=== PATIENT | female | born 1960 | race Caucasian/White ===

== ENCOUNTER 2017-12-26 14:34 | Emergency (ER) | payer OTHER ==
--- NOTE | 2017-12-26 14:49 | PDOC ---
History of Present Illness - General Chief Complaint: Pain Stated Complaint: PAIN Time Seen by Provider: 12/26/17 14:43 - History of Present Illness Initial Comments: 12/26/17 14:47 57 yo F with h/o morbid obesity who p/w lower abdominal pain and dysuria. Patient reports 5 days of dull, spasmodic, left lower quadrant abdominal pain, worse with prolonged sitting position. Also endorses 5 days of dysuria, and 2 days of nausea without vomiting. Normal daily bowel movements. Denies recent abdominal trauma. Pain not relieved with Iburprofen. Patient denies N/V, F,C, CP, SOB, urinary complaints, diarrhea, constipation, BPR, lightheadedness, weakness, sensory changes. PMHx: as noted above Surgical: H/o hysterectomy ROS: as noted SHx: 1/2 ppd tobacco use x 20 + years. Allergies:NKDA Past History - Past Medical History Allergies/Adverse Reactions: Allergies Allergy/AdvReac Type Severity Reaction Status Date / Time No Known Allergies Allergy Verified 12/26/17 14:35 Home Medications: Ambulatory Orders Cephalexin [Keflex] 500 mg PO BID #14 capsule MDD 2 tab 12/26/17 COPD: No Diabetes: Yes HTN: Yes Thyroid Disease: Yes (hypothyroidism) - Suicide/Smoking/Psychosocial Hx Smoking Status: Yes Smoking History: Current every day smoker Have you smoked in the past 12 months: Yes Number of Cigarettes Smoked Daily: 5 Information on smoking cessation initiated: Yes 'Breaking Loose' booklet given: 12/26/17 Hx Alcohol Use: No Drug/Substance Use Hx: No Substance Use Type: None Review of Systems - Review of Systems Comments:: 12/26/17 14:47 GENERAL/CONSTITUTIONAL: No fever or chills. No weakness. HEAD, EYES, EARS, NOSE AND THROAT: No change in vision. No ear pain or discharge. No sore throat. CARDIOVASCULAR: No chest pain or shortness of breath RESPIRATORY: No cough, wheezing, or hemoptysis. GASTROINTESTINAL: + Abdominal pain, dysuria. No nausea, vomiting, diarrhea or constipation. GENITOURINARY: No dysuria, frequency, or change in urination. MUSCULOSKELETAL: No joint or muscle swelling or pain. No neck or back pain. SKIN: No rash NEUROLOGIC: No headache, vertigo, loss of consciousness, or change in strength/ sensation. ENDOCRINE: No increased thirst. No abnormal weight change HEMATOLOGIC/LYMPHATIC: No anemia, easy bleeding, or history of blood clots. ALLERGIC/IMMUNOLOGIC: No hives or skin allergy. *Physical Exam - Vital Signs Last Vital Signs Temp Pulse Resp BP Pulse Ox 98.4 F 104 H 18 146/86 100 12/26/17 14:35 12/26/17 14:35 12/26/17 14:35 12/26/17 14:35 12/26/17 14:35 - Physical Exam Comments: 12/26/17 14:47 GENERAL: Awake, alert, and fully oriented, in no acute distress HEAD: No signs of trauma, normocephalic, atraumatic EYES: PERRLA, EOMI, sclera anicteric, conjunctiva clear ENT: Hearing grossly normal, nares patent, oropharynx clear without exudates. Moist mucosa NECK: Normal ROM, supple, no lymphadenopathy, JVD, or masses LUNGS: No distress, speaks full sentences, clear to auscultation bilaterally HEART: Regular rate and rhythm, normal S1 and S2, no murmurs, rubs or gallops, peripheral pulses normal and equal bilaterally. ABDOMEN: + Suprapubic ttp. Soft, normoactive bowel sounds. No guarding, no rebound, no rigidity. No masses. Neg CVA ttp. EXTREMITIES : Normal inspection, Normal range of motion, no edema. No clubbing or cyanosis. SKIN: Warm, Dry, normal turgor, no rashes or lesions noted ED Treatment Course - LABORATORY CBC & Chemistry Diagram: 12/26/17 15:05 12/26/17 15:05 Medical Decision Making - Medical Decision Making 12/26/17 15:28 57 yo F with h/o morbid obesity who p/w lower abdominal pain and dysuria. VSS, AF. + Suprapubic ttp. Likely cystitis. Differential also includes nephrolithiais , colitis, diverticulitis, . No upper abdominal involvement. Low suspicion of appendicitis, biliary dz. pancreatitis, AAA. ED Course: CBC,CMP, UA, Urine Cx. NS, Toradol 12/26/17 15:33 UA: 3+ Leuk Est, 58 WBC, 22 RBC Keflex sent to pharmacy 12/26/17 16:39 WBC: 11.0 CMP: Unremarkable Patient stable for d/c with return precautions. Advised to f/u with PMD. *DC/Admit/Observation/Transfer Diagnosis at time of Disposition: Cystitis - Discharge Dispostion Condition at time of disposition: Stable Decision to Admit order: No - Prescriptions Prescriptions: Cephalexin [Keflex] 500 mg PO BID #14 capsule MDD 2 tab - Referrals Referrals: Jose Juan Hall [Primary Care Provider] - - Patient Instructions Printed Discharge Instructions: DI for Urinary Tract Infection (UTI) Additional Instructions: Please return to the emergency department with any new or worsening symptoms or concerns. Please follow up with your primary care physician within 72 hours. Please take Keflex as prescribed two times a day for 7 days. Ibuprofen and Tylenol as needed for pain. - Post Discharge Activity - Attestations Physician Attestion: 12/26/17 14:49 I attest to the information provided in this note.
[2017-12-26 14:57] VITALS: BP 146/86; TEMP 98.4; BMI 42.5
[2017-12-26 15:08] LABS: URINE APPEARANCE CLOUDY; URINE BILIRUBIN NEGATIVE (<2.0 mg/dL); URINE GLUCOSE (UA) NEGATIVE (NEGATIVE); URINE KETONE TRACE (NEGATIVE); URINE NITRITE NEGATIVE (NEGATIVE)
[2017-12-26 15:12] LABS: URINE COLOR YELLOW; URINE LEUK ESTERASE 3+ (NEGATIVE); URINE PROTEIN 2+ (NEGATIVE)
[2017-12-26 15:16] LABS: EPI CELLS MANY /HPF (FEW); URINE BACTERIA MANY /hpf (NONE SEEN); URINE HYALINE CAST 2 /lpf; URINE MUCUS MODERATE
[2017-12-26] MEDS ORDERED: KETOROLAC TROMETHAMINE 30 MG/1 ML VIAL IVPUSH ONE (15:29)
[2017-12-26 15:30] LABS: BASO % 0.9 % (0-2.0); EOS % 2.2 % (0-4.5); HEMATOCRIT 46.7 % (32.4-45.2); HEMOGLOBIN 15.4 GM/dL (10.7-15.3); LYMPH % 37.9 % (8-40); MCH 29.2 pg (25.7-33.7); MEAN CELL VOLUME 88.5 fl (80-96); MEAN PLT VOLUME 8.7 fl (7.5-11.1); MONO % 5.8 % (3.8-10.2); NEUT % 53.2 % (42.8-82.8); PLATELET COUNT 322 K/MM3 (134-434); RBC 5.28 M/mm3 (3.60-5.2); RDW 14.1 % (11.6-15.6)
[2017-12-26] MEDS ORDERED: SODIUM CHLORIDE 1,000 ML IV STA (15:30)
[2017-12-26] MEDS ORDERED: KETOROLAC TROMETHAMINE 30 MG/1 ML VIAL ONE (15:33)
[2017-12-26 15:43] LABS: ALBUMIN 3.7 g/dl (3.4-5.0); ALK PHOS 131 U/L (45-117); ANION GAP 10 MMOL/L (8-16); BILIRUBIN,TOTAL 0.3 mg/dL (0.2-1); BLOOD UREA NITROGEN 17 mg/dL (7-18); CALCIUM 9.8 mg/dL (8.5-10.1); CHLORIDE 109 mmol/L (98-107); CO2 24 mmol/L (21-32); CREATININE 0.8 mg/dL (0.55-1.3); GLUCOSE,RANDOM 200 mg/dL (74-106); POTASSIUM 4.2 mmol/L (3.5-5.1); SGOT/AST 15 U/L (15-37); SGPT/ALT 32 U/L (13-61); SODIUM 143 mmol/L (136-145)
--- NOTE | 2017-12-26 16:54 | PDOC ---
Attending Attestation - Resident Resident Name: Feliberto Allison - ED Attending Attestation I have performed the following: I have examined & evaluated the patient, The case was reviewed & discussed with the resident, I agree w/resident's findings & plan, Exceptions are as noted - HPI HPI: 12/28/17 08:42 Ms Diaz is a 57 yo F with h/o morbid obesity who p/w lower abdominal pain and dysuria x 5 days. (+) dysuria (+) 2 days of nausea without vomiting. No fevers or chills No hematuria noted No weakness - Physicial Exam PE: 12/28/17 08:43 GENERAL: Awake, alert, and fully oriented, in no acute distress LUNGS: No distress, speaks full sentences, clear to auscultation bilaterally HEART: Regular rate and rhythm, normal S1 and S2, no murmurs, rubs or gallops, peripheral pulses normal and equal bilaterally. ABDOMEN: + Suprapubic tenderness to palpation, no guarding or rebound, no RLQ or LLQ tenderness Neg CVA ttp. EXTREMITIES : Normal inspection, Normal range of motion, no edema. No clubbing or cyanosis. SKIN: Warm, Dry, normal turgor, no rashes or lesions noted - Medical Decision Making 12/28/17 08:46 Laboratory Tests 12/26/17 12/26/17 15:01 15:05 WBC 11.0 H Urine Ketones Trace H Urine Blood Negative Ur Leukocyte Esterase 3+ H Urine WBC (Auto) 58 Urine RBC (Auto) 22 Likely UTI Will send urine culture D/c to home return for worsening pain, fever, any other concerns or complaints
[2017-12-26 17:03] VITALS: PULSE 92
== END 2017-12-26 17:03 | disposition home or self-care (01) ==
LOC: JER 14:34
PROC: 3E0337Z Introduction of Electrolytic and Water Balance Substance into Peripheral Vein, Percutaneous Approach (ICD-10-PCS; principal; 2017-12-26)
PROC: 3E0333Z Introduction of Anti-inflammatory into Peripheral Vein, Percutaneous Approach (ICD-10-PCS; 2017-12-26)
DX: N30.00 Acute cystitis without hematuria (principal); I10 Essential (primary) hypertension; E03.9 Hypothyroidism, unspecified; E11.9 Type 2 diabetes mellitus without complications; F17.210 Nicotine dependence, cigarettes, uncomplicated
CPT/HCPCS: 36415; 80053; 81003; 81015; 85025; 87086; 96361; 96374; 99283-25; J7030

== ENCOUNTER 2018-07-16 06:13 | Emergency (ER) | payer OTHER ==
[2018-07-16] MEDS ORDERED: SODIUM CHLORIDE 1,000 ML IV STA (06:23)
[2018-07-16 06:27] VITALS: BP 158/89; PULSE 104; TEMP 98.9; BMI 43.5
--- NOTE | 2018-07-16 07:14 | PDOC ---
History of Present Illness - General Chief Complaint: Pain Stated Complaint: ABD PAIN Time Seen by Provider: 07/16/18 07:14 History Source: Patient - History of Present Illness Initial Comments: 07/16/18 07:27 The patient is a 57 year old female with a PMH of IDDM, Hypothyroidism (2/2 thyroid resection), HTN, HLD who presents to our ED this morning c/o acute onset of abdominal pain. Patient states patient started at 2 a.m. right after she got up to urinate. Pain is sharp, constant, localized to her B/L LQ and associated with 4 episodes of NBNB emesis. States she currently feels the urge to urinate however every time she goes to the bathroom she only produces a little bit of urine. No h/o similar pain. Last PO intake was yesterday around 6 p.m. and last BM was yesterday morning and was normal. NKDA Surgical: Hysterectomy, Thyroid Resection, Cholecystectomy Social: 1/2 PPD for 20+ years, denies recreational drugs As per EMR, patient evaluated in our ED in 07/17 for dysuria. Urine culture negative for growth. Past History - Past Medical History Allergies/Adverse Reactions: Allergies Allergy/AdvReac Type Severity Reaction Status Date / Time No Known Allergies Allergy Verified 12/26/17 14:35 Home Medications: Ambulatory Orders Aspirin 81 mg PO DAILY 07/16/18 Atorvastatin Ca [Lipitor] 20 mg PO HS 07/16/18 Docusate Sodium [Colace] 100 mg PO DAILY 07/16/18 Ibuprofen [Motrin -] 600 mg PO QID #28 tablet 07/16/18 Insulin Glargine,Hum.rec.anlog [Basaglar Kwikpen U-100] 60 unit SQ HS 07/16/18 Insulin Lispro [Admelog] 15 unit SQ TID 07/16/18 Levothyroxine Sodium [Synthroid] 150 mcg PO DAILY 07/16/18 Metformin HCl [Glucophage] 1,000 mg PO BID 07/16/18 Montelukast Na [Singulair -] 10 mg PO HS 07/16/18 Oxycodone HCl/Acetaminophen [Percocet 5-325 mg Tablet -] 1 combo PO Q6H PRN #14 tablet MDD 4 07/16/18 Ramipril 10 mg PO DAILY 07/16/18 Semaglutide [Ozempic] 1 mg SQ WEEKLY 07/16/18 Sennosides [Senna -] 1 tab PO DAILY 07/16/18 Tamsulosin HCl [Flomax -] 0.4 mg PO DAILY #5 cap.er.24h 07/16/18 Umeclidinium Brm/Vilanterol Tr [Anoro Ellipta 62.5-25 Mcg INH] 1 each IH DAILY 07/16/18 COPD: No Diabetes: Yes HTN: Yes Thyroid Disease: Yes (hypothyroidism) - Immunization History Td Vaccination: Yes TDAP Vaccination: Yes Immunization Up to Date: Yes - Suicide/Smoking/Psychosocial Hx Smoking Status: Yes Smoking History: Never smoked Have you smoked in the past 12 months: Yes Number of Cigarettes Smoked Daily: 10 Information on smoking cessation initiated: No 'Breaking Loose' booklet given: 12/26/17 Hx Alcohol Use: No Drug/Substance Use Hx: No Substance Use Type: None Review of Systems - Review of Systems Constitutional: No: Chills, Fever HEENTM: No: Recent change in vision Respiratory: No: Cough, Shortness of Breath Cardiac (ROS): No: Chest Pain, Lightheadedness, Palpitations, Syncope ABD/GI: Yes: Diarrhea, Nausea, Vomiting. No: Constipated : Yes: Urgency. No: Burning, Dysuria *Physical Exam - Vital Signs Last Vital Signs Temp Pulse Resp BP Pulse Ox 98.9 F 104 H 20 158/89 100 07/16/18 06:23 07/16/18 06:23 07/16/18 06:23 07/16/18 06:23 07/16/18 06:23 - Physical Exam General Appearance: Yes: Nourished, Obese HEENT: positive: Normal Voice, Hearing Grossly Normal Neck: positive: Trachea midline, Supple Respiratory/Chest: positive: Lungs Clear, Normal Breath Sounds Cardiovascular: positive: S1, S2 Gastrointestinal/Abdominal: positive: Soft Heart Score/ECG Review - ECG Impressions Comment:: 07/16/18 17:19 NSR HR 92, LAD, incomplete LBB, no ISABEL/STD/TWI ED Treatment Course - LABORATORY CBC & Chemistry Diagram: 07/16/18 07:20 07/16/18 06:22 Medical Decision Making - Medical Decision Making 07/16/18 07:37 57 year old female with acute onset of abdominal pain, c/o increased urgency. Tachycardic (HR 104) other VS unremarkable. Initial abdominal TTP, negative tenderness w/stethescope test, mild R sided CVAT. Frontal diagnosis: pyelonephritis, cystitis, less likely acute abdomen including SBO, cholecystitis , appendicitis. Also consider gastritis/gastroenteritis. Also consider abdominal pain as anginal equivalent, though less likely. PLAN: 1. Troponin, EKG 2. CBC, CMP 3. UA/Urine Culture Toradol for pain control. Reassess. 07/16/18 08:20 UA shows 3+ blood - will obtain non-contrast CT to evaluate for possible nephrolithiasis Leukocytosis 14.7 CMP unremarkable Troponin (-) 07/16/18 10:44 CT IMPRESSION: 1. 6 mm left ureteral calculus with mild hydronephrosis 2. No additional evidence of acute pathology within the abdomen or pelvis Patient reassessed @ bedside. Symptomatically improved. Will discharge home with urology follow-up, NSAIDs/Percocet for pain control, Flomax and return precautions. *DC/Admit/Observation/Transfer Diagnosis at time of Disposition: Nephrolithiasis - Discharge Dispostion Disposition: HOME Condition at time of disposition: Good Decision to Admit order: No - Prescriptions Prescriptions: Ibuprofen [Motrin -] 600 mg PO QID #28 tablet Oxycodone HCl/Acetaminophen [Percocet 5-325 mg Tablet -] 1 combo PO Q6H PRN #14 tablet MDD 4 PRN Reason: Pain Tamsulosin HCl [Flomax -] 0.4 mg PO DAILY #5 cap.er.24h - Referrals Referrals: Jose Juan Hall [Primary Care Provider] - Dom Brizuela MD [Staff Physician] - - Patient Instructions Additional Instructions: Please make an appointment for follow-up evaluation with Dr. Brizuela in the next 48 hours. Alternatively, you can call your insurance company for a list of urologists. We have sent a prescription for pain medication and a prescription for a medication to help you urinate to your pharmacy. Please take these medications as directed. Return to the Emergency Department for any new/worsening/concerning symptoms. - Post Discharge Activity
--- NOTE | 2018-07-16 07:22 | PDOC ---
Attending Attestation - Resident Resident Name: VaneCheri - ED Attending Attestation I have performed the following: I have examined & evaluated the patient, The case was reviewed & discussed with the resident, I agree w/resident's findings & plan, Exceptions are as noted - HPI HPI: 07/16/18 07:31 57y F hx of htn, hl, IDDM, hypothyroid secondary to thyroid resection, presents with sudden onset of LLQ pain starting around 2am. Pt was in [facility] until then - pain is in the L flank, severe, constant, radiates to the groin. Associated with nbnb vomiting without f/c, diarrhea, dysuria, hematuria. Pt endorses some urgency. Pt denies any assoc cp, sob, back pain, numbness/tingling/weakness. No prior history of similar pain in the past. Last BM was yesterday morning. Surgical hx: hysterectomy, cholecystectomy SHx: 1/2 ppd tobacco use x 20 + years. Allergies:NKDA - Physicial Exam PE: 07/16/18 07:32 GENERAL: The patient is awake, alert, and fully oriented, appears to be uncomfortable HEAD: Normocephalic, atraumatic. EYES: extraocular movements intact, sclera anicteric, conjunctiva clear. ENT: Normal voice, Moist mucous membranes. NECK: Normal range of motion, supple LUNGS: Breath sounds equal, clear to auscultation bilaterally. No wheezes, no rhonchi, no rales. HEART: Regular rate and rhythm, normal S1 and S2 without murmur, rub or gallop. ABDOMEN: Soft, nontender, No guarding, no rebound. . No CVA tenderness EXTREMITIES: Normal range of motion, no edema. No clubbing or cyanosis. No cords, erythema, or tenderness. NEUROLOGICAL: No facial assymetry, Normal speech, PSYCH: Normal mood, normal affect. SKIN: Warm, Dry, normal turgor, - Medical Decision Making 07/16/18 07:35 ddx- kidney stones, uti, diveticulitis, obstruction will obtain basic labs, ua, anticipate imaging depending on UA results toradol for pain fluids for hydration zofran for nausea 07/16/18 08:41 The patient's blood work was reviewed no significant leukocytosis, urine has some hematuria. We'll obtain CT of abdomen to rule out kidney stones or other pathologies. She is currently much more comfortable 07/16/18 11:01 US cw 6mm stoneon left side will reassess the patint. if pain controlled will dc with uro fu 07/16/18 11:30 pt jaiden johnston will dc with pmd and uro fu Heart Score/ECG Review - ECG Impressions Comment:: 07/16/18 08:41 Twelve-lead EKG was performed and reviewed by me. There is normal sinus rhythm with a normal rate. Rate of 92 Left axis deviation Incomplete left bundle-branch block
[2018-07-16] MEDS ORDERED: KETOROLAC TROMETHAMINE 30 MG/1 ML VIAL IVPUSH ONE (07:30)
[2018-07-16] MEDS ORDERED: KETOROLAC TROMETHAMINE 30 MG/1 ML VIAL ONE (07:34)
[2018-07-16] MEDS ORDERED: ONDANSETRON 4 MG/2 ML VIAL IVPB ONE (07:34)
[2018-07-16 07:37] LABS: URINE APPEARANCE CLOUDY; URINE BACTERIA 29.4 /hpf (NEGATIVE); URINE BILIRUBIN NEGATIVE (NEGATIVE); URINE CASTS 3 /lpf (0-8); URINE COLOR YELLOW; URINE GLUCOSE (UA) 3+ (NEGATIVE); URINE KETONE 1+ (NEGATIVE); URINE LEUK ESTERASE 1+ (NEGATIVE); URINE NITRITE NEGATIVE (NEGATIVE); URINE PROTEIN 1+ (NEGATIVE); URINE RBC 290 /hpf (0-4); URINE UROBILINOGEN 0.2 mg/dL (0.2-1.0); URINE WBC 12 /hpf (0-5)
[2018-07-16] MEDS ORDERED: ONDANSETRON 4 MG/2 ML VIAL ONE (07:38)
[2018-07-16 07:41] LABS: VENOUS PC02 38.6 mmHg (41-51); VENOUS PH 7.4 (7.31-7.41); VENOUS PO2 39.8 mmHg (30-40)
[2018-07-16 07:57] LABS: ALBUMIN 4.3 g/dl (3.4-5.0); ALK PHOS 131 U/L (45-117); ANION GAP 10 MMOL/L (8-16); BILIRUBIN,TOTAL 0.4 mg/dL (0.2-1); BLOOD UREA NITROGEN 22 mg/dL (7-18); CALCIUM 9.9 mg/dL (8.5-10.1); CHLORIDE 104 mmol/L (98-107); CO2 24 mmol/L (21-32); GLUCOSE,RANDOM 275 mg/dL (74-106); LIPASE 110 U/L (73-393); POTASSIUM 4.2 mmol/L (3.5-5.1); SGOT/AST 19 U/L (15-37); SGPT/ALT 42 U/L (13-61); SODIUM 138 mmol/L (136-145); TOT PROT 7.9 g/dl (6.4-8.2)
[2018-07-16 08:08] LABS: ACETONE SERUM NEGATIVE (NEGATIVE)
[2018-07-16 08:30] LABS: BASO % 0.6 % (0-2.0); EOS % 0.2 % (0-4.5); HEMATOCRIT 46.1 % (32.4-45.2); HEMOGLOBIN 15.5 GM/dL (10.7-15.3); LYMPH % 14.8 % (8-40); MCH 29.6 pg (25.7-33.7); MCHC 33.5 g/dl (32.0-36.0); MEAN CELL VOLUME 88.2 fl (80-96); MEAN PLT VOLUME 8.9 fl (7.5-11.1); MONO % 6.1 % (3.8-10.2); NEUT % 78.3 % (42.8-82.8); PLATELET COUNT 319 K/MM3 (134-434); RBC 5.23 M/mm3 (3.60-5.2); RDW 13.6 % (11.6-15.6); WHITE BLOOD COUNT 14.7 K/mm3 (4.0-10.0)
--- NOTE | 2018-07-16 10:31 | EKG ---
Test Reason : Blood Pressure : / mmHG Vent. Rate : 092 BPM Atrial Rate : 092 BPM P-R Int : 154 ms QRS Dur : 110 ms QT Int : 376 ms P-R-T Axes : 066 -35 090 degrees QTc Int : 464 ms NORMAL SINUS RHYTHM LEFT AXIS DEVIATION INCOMPLETE LEFT BUNDLE BRANCH BLOCK T WAVE ABNORMALITY, CONSIDER LATERAL ISCHEMIA PROLONGED QT ABNORMAL ECG Confirmed by TASHA PORTILLO MD ([id number]) on 07/16/2018 10:30:48 AM Referred By: Confirmed By:TASHA PORTILLO MD
== END 2018-07-16 12:00 | disposition home or self-care (01) ==
LOC: JER 06:13
PROC: 3E0337Z Introduction of Electrolytic and Water Balance Substance into Peripheral Vein, Percutaneous Approach (ICD-10-PCS; principal; 2018-07-16)
PROC: 3E0333Z Introduction of Anti-inflammatory into Peripheral Vein, Percutaneous Approach (ICD-10-PCS; 2018-07-16)
PROC: 3E033GC Introduction of Other Therapeutic Substance into Peripheral Vein, Percutaneous Approach (ICD-10-PCS; 2018-07-16)
DX: N13.2 Hydronephrosis with renal and ureteral calculous obstruction (principal); I10 Essential (primary) hypertension; E78.5 Hyperlipidemia, unspecified; E11.9 Type 2 diabetes mellitus without complications; Z79.4 Long term (current) use of insulin; E89.0 Postprocedural hypothyroidism
CPT/HCPCS: 36415; 74176-TC; 80053; 81003; 82009; 82550; 82553; 82803; 82962; 83690; 84484; 85025; 93005; 93010; 96361; 96374; 96375; 99284-25; J7030

== ENCOUNTER 2018-07-18 02:06 | Inpatient (IN) | payer OTHER ==
[2018-07-18] MEDS ORDERED: morphine CARPU-JECT 2 MG/1 ML DISP.SYRIN IVPUSH ONE (02:09)
[2018-07-18] MEDS ORDERED: KETOROLAC TROMETHAMINE 30 MG/1 ML VIAL IVPUSH ONE (02:09)
[2018-07-18] MEDS ORDERED: TAMSULOSIN HCL 0.4 MG CAP PO ONE (02:10)
--- NOTE | 2018-07-18 02:10 | PDOC ---
History of Present Illness - General Stated Complaint: LEFT FLANK PAIN Time Seen by Provider: 07/18/18 02:09 - History of Present Illness Initial Comments: 07/18/18 02:41 The patient is a 57 year old female with a history of HTN, DM, Hypothyroidism who presents for evaluation of flank pain. The patient reports a 2-3 day history of left sided severe sharp flank pain with radiation into her left groin. She presented to the ED 1 day ago for similar symptoms and was found to have a 6mm left kidney stone. She was discharged with pain medication, however reports continued severe symptoms despite medication with associated nausea and non-bilious, non-bloody vomiting prompting her presentation to the ED for further evaluation. She otherwise denies fevers, chills, SOB, chest pain, abdominal pain, or changes with bowel movements. Past History - Past Medical History Allergies/Adverse Reactions: Allergies Allergy/AdvReac Type Severity Reaction Status Date / Time No Known Allergies Allergy Verified 07/18/18 02:33 Home Medications: Ambulatory Orders Aspirin 81 mg PO DAILY 07/16/18 Atorvastatin Ca [Lipitor] 20 mg PO HS 07/16/18 Docusate Sodium [Colace] 100 mg PO DAILY 07/16/18 Ibuprofen [Motrin -] 600 mg PO QID #28 tablet 07/16/18 Insulin Glargine,Hum.rec.anlog [Basaglar Kwikpen U-100] 60 unit SQ HS 07/16/18 Insulin Lispro [Admelog] 15 unit SQ TID 07/16/18 Levothyroxine Sodium [Synthroid] 150 mcg PO DAILY 07/16/18 Metformin HCl [Glucophage] 1,000 mg PO BID 07/16/18 Montelukast Na [Singulair -] 10 mg PO HS 07/16/18 Oxycodone HCl/Acetaminophen [Percocet 5-325 mg Tablet -] 1 combo PO Q6H PRN #14 tablet MDD 4 07/16/18 Ramipril 10 mg PO DAILY 07/16/18 Semaglutide [Ozempic] 1 mg SQ WEEKLY 07/16/18 Sennosides [Senna -] 1 tab PO DAILY 07/16/18 Tamsulosin HCl [Flomax -] 0.4 mg PO DAILY #5 cap.er.24h 07/16/18 Umeclidinium Brm/Vilanterol Tr [Anoro Ellipta 62.5-25 Mcg INH] 1 each IH DAILY 07/16/18 COPD: No Diabetes: Yes HTN: Yes Thyroid Disease: Yes (hypothyroidism) - Immunization History Td Vaccination: Yes TDAP Vaccination: Yes Immunization Up to Date: Yes - Suicide/Smoking/Psychosocial Hx Smoking Status: Yes Smoking History: Never smoked Have you smoked in the past 12 months: Yes Number of Cigarettes Smoked Daily: 10 'Breaking Loose' booklet given: 12/26/17 Hx Alcohol Use: No Drug/Substance Use Hx: No Substance Use Type: None Review of Systems - Review of Systems Comments:: 07/18/18 02:45 Constitutional: No fevers, chills, fatigue, malaise HEENT: No Rhinorrhea, nasal congestion, visual changes Cardiovascular: No chest pain, syncope, palpitations, lightheadedness Respiratory: No Cough, SOB, Hemoptysis, Gastrointestinal: Nausea, vomiting. No Abdominal pain, Constipation, Diarrhea, Melena Genitourinary: Left Flank pain, Increased Frequency of Urination. No Dysuria, Urgency, Hesitancy, Musculoskeletal: No Myalgia, arthralgia Skin: No rashes, itching, bruising, pallor Neurologic: No Headache, Dizziness, Numbness, Weakness, or Tingling Psychiatric: No Hallucinations. No SI or HI *Physical Exam - Physical Exam Comments: 07/18/18 02:45 General Appearance: Nourished. No Apparent Distress HEENT: No Pharyngeal Erythema, Tonsillar Exudate, Tonsillar Erythema Neck: No Cervical Lymphadenopathy Respiratory/Chest: Lungs Clear, Normal Breath Sounds. No Crackles, Rales, Rhonchi, Wheezing Cardiovascular: Regular Rhythm, Regular Rate. No Murmur, Gallops, Rubs Gastrointestinal/Abdominal: Normal Bowel Sounds, Soft. No Guarding, Rebound, Tenderness Musculoskeletal: Left sided CVA Tenderness, No Right sided CVA Tenderness Extremity: Normal Capillary Refill Integumentary: Normal Color, Dry, Warm Neurologic: Fully Oriented, Alert, Normal Mood/Affect, Normal Response, ED Treatment Course - LABORATORY CBC & Chemistry Diagram: 07/18/18 02:38 07/18/18 02:09 Medical Decision Making - Medical Decision Making 07/18/18 02:46 The patient is a 57 year old female with a history of HTN, DM, Hypothyroidism who presents for evaluation of flank pain. Given the patient's history and physical exam, it is likely her symptoms are due to her known kidney stone. However, we will obtain a cbc, cmp, ua, CT abdomen/pelvis to evaluate further. We will treat with morphine and toradol and flomax and continue to monitor and reassess while here in the ED. She will likely require admission given her failure of outpatient management. 07/18/18 03:54 CBC is unremarkable. CMP demonstrates a creatinine of 1.7 which is increased from 2 days ago. CMP also demonstrates an elevated glucose to 300s. CT abdomen /pelvis continues to demonstrate 6mm left sided kidney stone with mild hydronephrosis as preliminarily read by our correction officer head radiologist. We discussed the case with the admitting team who accepted the patient for admission. *DC/Admit/Observation/Transfer Diagnosis at time of Disposition: Nephrolithiasis - Discharge Dispostion Condition at time of disposition: Stable Decision to Admit order: Yes - Referrals Referrals: Jose Juan Hall [Primary Care Provider] - - Patient Instructions - Post Discharge Activity
[2018-07-18] MEDS ORDERED: KETOROLAC TROMETHAMINE 30 MG/1 ML VIAL ONE (02:43)
[2018-07-18] MEDS ORDERED: TAMSULOSIN HCL 0.4 MG CAP ONE (02:43)
[2018-07-18] MEDS ORDERED: morphine SULFATE 4 MG/ML VIAL ONE (02:43)
[2018-07-18 02:51] LABS: BASO % 0.8 % (0-2.0); EOS % 0.2 % (0-4.5); HEMATOCRIT 43.8 % (32.4-45.2); HEMOGLOBIN 14.7 GM/dL (10.7-15.3); LYMPH % 17.2 % (8-40); MCH 29.7 pg (25.7-33.7); MCHC 33.6 g/dl (32.0-36.0); MEAN CELL VOLUME 88.5 fl (80-96); MEAN PLT VOLUME 8.3 fl (7.5-11.1); MONO % 4.5 % (3.8-10.2); NEUT % 77.3 % (42.8-82.8); PLATELET COUNT 294 K/MM3 (134-434); RBC 4.95 M/mm3 (3.60-5.2); RDW 13.4 % (11.6-15.6); WHITE BLOOD COUNT 10.7 K/mm3 (4.0-10.0)
--- NOTE | 2018-07-18 02:56 | PDOC ---
Attending Attestation - Resident Resident Name: Bhupendra Gautam - ED Attending Attestation I have performed the following: I have examined & evaluated the patient, The case was reviewed & discussed with the resident, I agree w/resident's findings & plan - HPI HPI: 07/18/18 02:55 Pt comes with left flank pain. SHe had a proximal 6mm stone in her left ureter yesterday with mild hydro. Sent home. Now retuens with intractable pain. - Physicial Exam PE: 07/18/18 02:56 Agree with resident exam - Medical Decision Making 07/18/18 02:55 Patient Name: KOFI RUBIO THIS IS A PRELIMINARY REPORT FROM [facility] DATE OF SERVICE: 2018-07-18 02:07:11 IMAGES: [id number] EXAM: CT ABDOMEN AND PELVIS WITHOUT CONTRAST 4.1 x 3.6 x 2.6 cm right adnexal soft tissue densiity, possibly ovarian, advise ultrasound correlation. Hysterectomy. 6 mm stone distal left ureter causing minimal hydronephrosis. No bowel obstruction, colitis, free fluid or free air. Normal appendix. Unremarkable pancreas. Dilated gallbladder, which can be seen in fasting state. Hepatomegaly. Nodular thickening left adrenal gland. Small umbilical hernia containing fat. 07/18/18 02:56 Pt will be admitted to obs. Pain management as well as BUN/Cr monitoring
[2018-07-18 02:57] LABS: URINE APPEARANCE CLEAR; URINE BILIRUBIN NEGATIVE (NEGATIVE); URINE COLOR YELLOW; URINE GLUCOSE (UA) 3+ (NEGATIVE); URINE KETONE 1+ (NEGATIVE); URINE LEUK ESTERASE NEGATIVE (NEGATIVE); URINE NITRITE NEGATIVE (NEGATIVE); URINE PROTEIN NEGATIVE (NEGATIVE); URINE UROBILINOGEN 0.2 mg/dL (0.2-1.0)
[2018-07-18 03:17] LABS: ALBUMIN 4.1 g/dl (3.4-5.0); ALK PHOS 125 U/L (45-117); ANION GAP 8 MMOL/L (8-16); BILIRUBIN,TOTAL 0.5 mg/dL (0.2-1); BLOOD UREA NITROGEN 23 mg/dL (7-18); CALCIUM 9.7 mg/dL (8.5-10.1); CHLORIDE 104 mmol/L (98-107); CO2 26 mmol/L (21-32); CREATININE 1.7 mg/dL (0.55-1.3); POTASSIUM 4.2 mmol/L (3.5-5.1); SGOT/AST 19 U/L (15-37); SGPT/ALT 40 U/L (13-61); SODIUM 138 mmol/L (136-145); TOT PROT 7.7 g/dl (6.4-8.2)
[2018-07-18 03:20] LABS: GLUCOSE,RANDOM 318 mg/dL (74-106)
--- NOTE | 2018-07-18 03:54 | HP ---
CHIEF COMPLAINT: left flank pain PCP: Isabel HISTORY OF PRESENT ILLNESS: 57 year old female with 2-3 day history of left sided severe sharp flank pain with radiation into her left groin. She presented to the ED 1 day ago for similar symptoms and was found to have a 6mm left kidney stone. She was discharged with pain medication, however reports continued severe symptoms despite medication with associated nausea and non-bilious, non-bloody vomiting. ER course was notable for: (1) CT of abdomen/pelvis (2) KEtorolac (3) Recent Travel: no PAST MEDICAL HISTORY:HTN, DM, Hypothyroidism, COPD? PAST SURGICAL HISTORY: hysterectomy, goiter removal Social History: Smokin/2 ppd tobacco use x 20 + years. Alcohol: no Drugs: no Family History: Allergies No Known Allergies Allergy (Verified 07/18/18 02:33) HOME MEDICATIONS: Home Medications Medication Instructions Recorded Aspirin 81 mg PO DAILY 07/16/18 Atorvastatin Ca [Lipitor] 20 mg PO HS 07/16/18 Docusate Sodium [Colace] 100 mg PO DAILY 07/16/18 Ibuprofen [Motrin -] 600 mg PO QID #28 tablet 07/16/18 Insulin Glargine,Hum.rec.anlog 60 unit SQ HS 07/16/18 [Basaglar Kwikpen U-100] Insulin Lispro [Admelog] 15 unit SQ TID 07/16/18 Levothyroxine Sodium [Synthroid] 150 mcg PO DAILY 07/16/18 Metformin HCl [Glucophage] 1,000 mg PO BID 07/16/18 Montelukast Na [Singulair -] 10 mg PO HS 07/16/18 Oxycodone HCl/Acetaminophen 1 combo PO Q6H PRN #14 tablet MDD 4 07/16/18 [Percocet 5-325 mg Tablet -] Ramipril 10 mg PO DAILY 07/16/18 Semaglutide [Ozempic] 1 mg SQ WEEKLY 07/16/18 Sennosides [Senna -] 1 tab PO DAILY 07/16/18 Tamsulosin HCl [Flomax -] 0.4 mg PO DAILY #5 cap.er.24h 07/16/18 Umeclidinium Brm/Vilanterol Tr 1 each IH DAILY 07/16/18 [Anoro Ellipta 62.5-25 Mcg INH] REVIEW OF SYSTEMS CONSTITUTIONAL: Absent: fever, chills, diaphoresis, generalized weakness, malaise, loss of appetite, weight change HEENT: Absent: rhinorrhea, nasal congestion, throat pain, throat swelling, difficulty swallowing, mouth swelling, ear pain, eye pain, visual changes CARDIOVASCULAR: Absent: chest pain, syncope, palpitations, irregular heart rate, lightheadedness , peripheral edema RESPIRATORY: Absent: cough, shortness of breath, dyspnea with exertion, orthopnea, wheezing, stridor, hemoptysis GASTROINTESTINAL: Absent: abdominal pain, abdominal distension,diarrhea, constipation, melena, hematochezia Present- nausea, vomiting, GENITOURINARY: Absent: dysuria, frequency, urgency, hesitancy, hematuria, genital pain present- flank pain, MUSCULOSKELETAL: Absent: myalgia, arthralgia, joint swelling, back pain, neck pain SKIN: Absent: rash, itching, pallor HEMATOLOGIC/IMMUNOLOGIC: Absent: easy bleeding, easy bruising, lymphadenopathy, frequent infections ENDOCRINE: Absent: unexplained weight gain, unexplained weight loss, heat intolerance, cold intolerance NEUROLOGIC: Absent: headache, focal weakness or paresthesias, dizziness, unsteady gait, seizure, mental status changes, bladder or bowel incontinence PSYCHIATRIC: Absent: anxiety, depression, suicidal or homicidal ideation, hallucinations. PHYSICAL EXAMINATION Vital Signs - 24 hr 07/18/18 02:31 Temperature 98.4 F Pulse Rate 96 H Respiratory 20 Rate Blood Pressure 156/86 O2 Sat by Pulse 98 Oximetry (%) GENERAL: Awake, alert, and fully oriented, in no acute distress, obese HEAD: Normal with no signs of trauma. EYES: Pupils equal, round and reactive to light, extraocular movements intact, sclera anicteric, conjunctiva clear. No lid lag. EARS, NOSE, THROAT: Ears normal, nares patent, oropharynx clear without exudates. Moist mucous membranes. NECK: Normal range of motion, supple without lymphadenopathy, JVD, or masses. LUNGS: Breath sounds equal, clear to auscultation bilaterally. No wheezes, and no crackles. No accessory muscle use. HEART: Regular rate and rhythm, normal S1 and S2 without murmur, rub or gallop. ABDOMEN: Soft, nontender, not distended, normoactive bowel sounds, no guarding, no rebound, no masses. MUSCULOSKELETAL: Normal range of motion at all joints. No bony deformities or tenderness. +CVA in left flank UPPER EXTREMITIES: 2+ pulses, warm, well-perfused. No cyanosis. No clubbing. No peripheral edema. LOWER EXTREMITIES: 2+ pulses, warm, well-perfused. No calf tenderness. No peripheral edema. NEUROLOGICAL: Cranial nerves II-XII intact. Normal speech. Normal gait. PSYCHIATRIC: Cooperative. Good eye contact. Appropriate mood and affect. SKIN: Warm, dry, normal turgor, no rashes or lesions noted, normal capillary refill. Laboratory Results - last 24 hr 07/18/18 07/18/18 07/18/18 02:09 02:38 02:50 WBC 10.7 H RBC 4.95 Hgb 14.7 Hct 43.8 MCV 88.5 MCH 29.7 MCHC 33.6 RDW 13.4 Plt Count 294 MPV 8.3 Absolute Neuts (auto) 8.2 H Neutrophils % 77.3 Lymphocytes % 17.2 Monocytes % 4.5 Eosinophils % 0.2 Basophils % 0.8 Nucleated RBC % 0 Sodium 138 Potassium 4.2 Chloride 104 Carbon Dioxide 26 Anion Gap 8 BUN 23 H Creatinine 1.7 H Creat Clearance w eGFR 31.09 Random Glucose 318 H* Calcium 9.7 Total Bilirubin 0.5 AST 19 ALT 40 Alkaline Phosphatase 125 H Total Protein 7.7 Albumin 4.1 Urine Color Yellow Urine Appearance Clear Urine pH 7.0 D Ur Specific [place] 1.025 Urine Protein Negative Urine Glucose (UA) 3+ H Urine Ketones 1+ H Urine Blood Negative Urine Nitrite Negative Urine Bilirubin Negative Urine Urobilinogen 0.[address] CT of abdomen/pelvis 4.1 x 3.6 x 2.6 cm right adnexal soft tissue densiity, possibly ovarian, advise ultrasound correlation. Hysterectomy. 6 mm stone distal left ureter causing minimal hydronephrosis. No bowel obstruction, colitis, free fluid or free air. Normal appendix. Unremarkable pancreas. Dilated gallbladder, which can be seen in fasting state. Hepatomegaly. Nodular thickening left adrenal gland. Small umbilical hernia containing fat. ASSESSMENT/PLAN: #distal left ureter 6 mm stone with resultant hydroneohrosis - failed outpatient pain med treatment. -observation -NPO -morphine IV prn if pain -zofran IV prn if nausea/vomiting -IV fluid hydration -tamsulosin -urology evaluation for stone removal #TOM- likely post obstructive from renal stone -IV fluid hydration -avoid nephrotoxins #right adnexal soft tissue density- cyst? Malignancy ? -transvaginal U/S for better evaluation -OBGYN consult #HTN -c/w ramipril home dose #HYperglycemia - normal AG -IV fluid hydration -novolog siding scale #COPD -home dose Ellipta, montelukast DVT ppx -heparin sc Visit type - Emergency Visit Emergency Visit: Yes ED Registration Date: 07/18/18 Care time: The patient presented to the Emergency Department on the above date and was hospitalized for further evaluation of their emergent condition. - New Patient This patient is new to me today: Yes Date on this admission: 07/18/18 - Critical Care Critical Care patient: No
[2018-07-18] MEDS: SODIUM CHLORIDE 1,000 ML IV SCH ×3 (03:59→21:53)
[2018-07-18] MEDS ORDERED: ONDANSETRON 4 MG/2 ML VIAL IVPB PRN (04:00)
[2018-07-18 05:01] VITALS: BMI 43.7
[2018-07-18] MEDS: INSULIN SLIDING SCALE (NOVOLOG) 1 VIAL SQ SCH ×4 (06:55→21:52)
[2018-07-18] MEDS: LEVOTHYROXINE NA 150 MCG TABLET PO SCH (06:56)
[2018-07-18 07:18] LABS: BASO % 0.6 % (0-2.0); EOS % 0.4 % (0-4.5); HEMOGLOBIN 13.4 GM/dL (10.7-15.3); LYMPH % 28.5 % (8-40); MCH 29.5 pg (25.7-33.7); MCHC 33.6 g/dl (32.0-36.0); MEAN PLT VOLUME 8.4 fl (7.5-11.1); MONO % 6.9 % (3.8-10.2); NEUT % 63.6 % (42.8-82.8); PLATELET COUNT 270 K/MM3 (134-434); RBC 4.55 M/mm3 (3.60-5.2); RDW 13.4 % (11.6-15.6); WHITE BLOOD COUNT 8.5 K/mm3 (4.0-10.0)
[2018-07-18 07:48] LABS: ANION GAP 6 MMOL/L (8-16); BLOOD UREA NITROGEN 20 mg/dL (7-18); CALCIUM 8.9 mg/dL (8.5-10.1); CHLORIDE 106 mmol/L (98-107); CO2 27 mmol/L (21-32); CREATININE 1.3 mg/dL (0.55-1.3); GLUCOSE,RANDOM 241 mg/dL (74-106); POTASSIUM 4.2 mmol/L (3.5-5.1); SODIUM 139 mmol/L (136-145)
[2018-07-18] MEDS ORDERED: PT OWN MED DRAWER 7, Y5N ONE (09:02)
[2018-07-18] MEDS: morphine SULFATE 4 MG/ML VIAL IVPUSH PRN ×2 (09:39→15:54)
--- NOTE | 2018-07-18 10:40 | PN ---
Progress Note, Physician Chief Complaint: AWAKE ALERT CHART REVIEWED IN MODERATE DISTRESS - Current Medication List Current Medications: Active Medications Aspirin (Asa -) 81 mg PO DAILY [facility] Atorvastatin Calcium (Lipitor -) 20 mg PO HS [facility] Docusate Sodium (Colace -) 100 mg PO DAILY [facility] Heparin Sodium (Porcine) (Heparin -) 5,000 unit SQ BID [facility] Sodium Chloride (Normal Saline -) 1,000 mls @ 75 mls/hr IV ASDIR [facility] Last Admin: 07/18/18 05:16 Dose: 75 mls/hr Insulin Aspart (Novolog Vial Sliding Scale -) 1 vial SQ ACHS [facility]; Protocol Last Admin: 07/18/18 06:55 Dose: 6 units Levothyroxine Sodium (Synthroid -) 150 mcg PO DAILY@0700 [facility] Last Admin: 07/18/18 06:56 Dose: 150 mcg Montelukast Sodium (Singulair -) 10 mg PO HS [facility] Morphine Sulfate (Morphine Sulfate) 2 mg IVPUSH Q4H PRN PRN Reason: PAIN LEVEL 6-10 Last Admin: 07/18/18 09:39 Dose: 2 mg Ondansetron HCl (Zofran Injection) 4 mg IVPB Q6H PRN PRN Reason: NAUSEA AND/OR VOMITING Last Admin: 07/18/18 09:33 Dose: 4 mg Ramipril (Altace -) 10 mg PO DAILY [facility] Tamsulosin HCl (Flomax -) 0.4 mg PO DAILY@0830 [facility] Umeclidinium/Vilanterol (Anoro Ellipta 62.5-25 Mcg Inh) 1 puff IH DAILY [facility] - Objective Vital Signs: Vital Signs Temperature 98.2 F 07/18/18 07:55 Pulse Rate 104 H 07/18/18 07:55 Respiratory Rate 16 07/18/18 07:55 Blood Pressure 135/80 07/18/18 07:55 O2 Sat by Pulse Oximetry (%) 97 07/18/18 08:32 Constitutional: Yes: Mild Distress Eyes: Yes: WNL HENT: Yes: WNL Neck: Yes: WNL Cardiovascular: Yes: WNL Respiratory: Yes: WNL Gastrointestinal: Yes: Tenderness Genitourinary: Yes: CVA Tenderness - Left, CVA Tenderness - Right, Other Musculoskeletal: Yes: Back Pain Edema: No Peripheral Pulses WNL: Yes Integumentary: Yes: WNL Wound/Incision: Yes: Clean/Dry Neurological: Yes: WNL ...Motor Strength: WNL Psychiatric: Yes: WNL Labs: CBC, BMP 07/18/18 06:40 07/18/18 06:40 Problem List - Problems (1) Ureter colic Code(s): N23 - UNSPECIFIED RENAL COLIC (2) Cystitis Code(s): N30.90 - CYSTITIS, UNSPECIFIED WITHOUT HEMATURIA (3) Nephrolithiasis Code(s): N20.0 - CALCULUS OF KIDNEY Assessment/Plan IVF/PAIN CONTROL MONITOR LABS CONSULT BGM CHECKS DVT PROPHYLAXIS
[2018-07-18] MEDS: TAMSULOSIN HCL 0.4 MG CAP PO SCH (10:45)
[2018-07-18] MEDS: UMECLIDINIUM/VILANTEROL (ANORO) 62.5/25 MCG INHALER IH SCH (10:45)
[2018-07-18] MEDS: RAMIPRIL 5 MG CAPSULE (FP) PO SCH (10:45)
[2018-07-18] MEDS: DOCUSATE SODIUM 100 MG CAPSULE (FP) PO SCH (10:45)
[2018-07-18] MEDS: ASPIRIN 81 MG CHEWABLE TABLETS PO SCH (10:45)
[2018-07-18] MEDS: HEPARIN NA (PORCINE) 5,000 UNITS/ML 1ML VIAL SQ SCH ×2 (10:45→21:52)
[2018-07-18] MEDS ORDERED: INSULIN (NOVOLOG) ASPART 100 UNITS/ML 10ML VIAL ONE (11:17)
--- NOTE | 2018-07-18 12:56 | EKG ---
Test Reason : Blood Pressure : / mmHG Vent. Rate : 089 BPM Atrial Rate : 089 BPM P-R Int : 156 ms QRS Dur : 110 ms QT Int : 366 ms P-R-T Axes : 057 -36 085 degrees QTc Int : 445 ms NORMAL SINUS RHYTHM LEFT AXIS DEVIATION INCOMPLETE LEFT BUNDLE BRANCH BLOCK MODERATE VOLTAGE CRITERIA FOR LVH, MAY BE NORMAL VARIANT T WAVE ABNORMALITY, CONSIDER LATERAL ISCHEMIA ABNORMAL ECG Confirmed by MD FRANCISCO, CHETAN ([id number]) on 07/18/2018 12:56:41 PM Referred By: Confirmed By:CHETAN SINGH MD
[2018-07-18] MEDS: KETOROLAC TROMETHAMINE 30 MG/1 ML VIAL IVPUSH SCH (17:53)
--- NOTE | 2018-07-18 18:46 | CON.GU ---
Consult Consult Specialty:: urology Referred by:: Gerson Reason for Consultation:: obstructing left ureteral stone - History of Present Illness Chief Complaint: left renal colic History of Present Illness: Patient with three day history of increasing left renal colic with nausea and vomiting. Patient denies gross hematuria, fever, or chills. Patient also with increased urinary frequency and urgency. - History Source History Provided By: Patient Limitations to Obtaining History: No Limitations - Past Medical History ...: No - Alcohol/Substance Use Hx Alcohol Use: No - Smoking History Smoking history: Current every day smoker Have you smoked in the past 12 months: Yes Aproximately how many cigarettes per day: 10 Home Medications - Allergies Allergies/Adverse Reactions: Allergies Allergy/AdvReac Type Severity Reaction Status Date / Time No Known Allergies Allergy Verified 07/18/18 02:33 - Home Medications Home Medications: Ambulatory Orders Aspirin 81 mg PO DAILY 07/16/18 Atorvastatin Ca [Lipitor] 20 mg PO HS 07/16/18 Docusate Sodium [Colace] 100 mg PO DAILY 07/16/18 Ibuprofen [Motrin -] 600 mg PO QID #28 tablet 07/16/18 Insulin Glargine,Hum.rec.anlog [Basaglar Kwikpen U-100] 60 unit SQ HS 07/16/18 Insulin Lispro [Admelog] 15 unit SQ TID 07/16/18 Levothyroxine Sodium [Synthroid] 150 mcg PO DAILY 07/16/18 Metformin HCl [Glucophage] 1,000 mg PO BID 07/16/18 Montelukast Na [Singulair -] 10 mg PO HS 07/16/18 Oxycodone HCl/Acetaminophen [Percocet 5-325 mg Tablet -] 1 combo PO Q6H PRN #14 tablet MDD 4 07/16/18 Ramipril 10 mg PO DAILY 07/16/18 Semaglutide [Ozempic] 1 mg SQ WEEKLY 07/16/18 Sennosides [Senna -] 1 tab PO DAILY 07/16/18 Tamsulosin HCl [Flomax -] 0.4 mg PO DAILY #5 cap.er.24h 07/16/18 Umeclidinium Brm/Vilanterol Tr [Anoro Ellipta 62.5-25 Mcg INH] 1 each IH DAILY 07/16/18 Physical Exam- Vital Signs: Vital Signs Temperature 98.4 F 07/18/18 13:45 Pulse Rate 88 07/18/18 13:45 Respiratory Rate 22 H 07/18/18 13:45 Blood Pressure 101/55 L 07/18/18 13:45 O2 Sat by Pulse Oximetry (%) 97 07/18/18 08:32 Constitutional: Yes: Well Nourished, Calm, Mild Distress Eyes: Yes: WNL, Conjunctiva Clear, EOM Intact HENT: Yes: WNL, Atraumatic, Normocephalic Neck: Yes: WNL, Supple, Trachea Midline Cardiovascular: Yes: WNL, Regular Rate and Rhythm Respiratory: Yes: WNL, Regular Gastrointestinal: Yes: WNL, Soft, Abdomen, Obese, Hypoactive Bowel Sounds Renal/: Yes: CVA Tenderness - Left Kidneys: Yes: Flank Pain Left Pelvis: Yes: WNL, Bladder Non Palpable External Genitalia: Yes: Cystocele Labs: CBC, BMP 07/18/18 06:40 07/18/18 06:40 Imaging - Results Cat Scan: Report Reviewed Assessment/Plan impression left renal colic left ureteral stone plan left ureteroscopic laser lithotripsy discussed x25 minutes risks and benefits of procedure reviewed
[2018-07-18] MEDS ORDERED: MONTELUKAST NA 10 MG TABLET PO SCH (22:00)
[2018-07-18] MEDS ORDERED: ATORVASTATIN CA 20 MG TABLET (FP) PO SCH (22:00)
[2018-07-19] MEDS: KETOROLAC TROMETHAMINE 30 MG/1 ML VIAL IVPUSH SCH ×3 (02:09→17:36)
[2018-07-19] MEDS: SODIUM CHLORIDE 1,000 ML IV SCH ×3 (06:32→17:37)
[2018-07-19] MEDS: LEVOTHYROXINE NA 150 MCG TABLET PO SCH (06:33)
[2018-07-19] MEDS: INSULIN SLIDING SCALE (NOVOLOG) 1 VIAL SQ SCH ×4 (06:40→22:12)
[2018-07-19] MEDS: TAMSULOSIN HCL 0.4 MG CAP PO SCH (08:44)
[2018-07-19] MEDS: DOCUSATE SODIUM 100 MG CAPSULE (FP) PO SCH (11:00)
[2018-07-19] MEDS: UMECLIDINIUM/VILANTEROL (ANORO) 62.5/25 MCG INHALER IH SCH (11:06)
[2018-07-19] MEDS: ASPIRIN 81 MG CHEWABLE TABLETS PO SCH (11:23)
[2018-07-19] MEDS: RAMIPRIL 5 MG CAPSULE (FP) PO SCH (11:23)
[2018-07-19] MEDS: HEPARIN NA (PORCINE) 5,000 UNITS/ML 1ML VIAL SQ SCH ×2 (11:23→22:00)
[2018-07-19] MEDS ORDERED: INSULIN (NOVOLOG) ASPART 100 UNITS/ML 10ML VIAL ONE (11:53)
--- NOTE | 2018-07-19 12:03 | PN ---
Progress Note, Physician Chief Complaint: L flank pain 6mm L ureteral calculus R ovarian mass History of Present Illness: Previous notes and events reviewed awake and alert NAD patient scheduled for lithotripsy Pelvic US shows R ovarian mass c/o L flank pain--controlled with current pain med regimen - Current Medication List Current Medications: Active Medications Aspirin (Asa -) 81 mg PO DAILY [facility] Last Admin: 07/19/18 11:23 Dose: Not Given Atorvastatin Calcium (Lipitor -) 20 mg PO HS [facility] Last Admin: 07/18/18 21:52 Dose: 20 mg Docusate Sodium (Colace -) 100 mg PO DAILY [facility] Last Admin: 07/19/18 11:00 Dose: Not Given Heparin Sodium (Porcine) (Heparin -) 5,000 unit SQ BID [facility] Last Admin: 07/19/18 11:23 Dose: Not Given Sodium Chloride (Normal Saline -) 1,000 mls @ 75 mls/hr IV ASDIR [facility] Last Admin: 07/19/18 09:47 Dose: 75 mls/hr Insulin Aspart (Novolog Vial Sliding Scale -) 1 vial SQ ACHS [facility]; Protocol Last Admin: 07/19/18 06:40 Dose: 6 units Ketorolac Tromethamine (Toradol Injection -) 30 mg IVPUSH Q8H-IV [facility] Stop: 07/23/18 17:59 Last Admin: 07/19/18 09:44 Dose: 30 mg Levothyroxine Sodium (Synthroid -) 150 mcg PO DAILY@0700 [facility] Last Admin: 07/19/18 06:33 Dose: 150 mcg Montelukast Sodium (Singulair -) 10 mg PO [facility] Last Admin: 07/18/18 21:52 Dose: 10 mg Morphine Sulfate (Morphine Sulfate) 2 mg IVPUSH Q4H PRN PRN Reason: PAIN LEVEL 6-10 Last Admin: 07/18/18 15:54 Dose: 2 mg Ondansetron HCl (Zofran Injection) 4 mg IVPB Q6H PRN PRN Reason: NAUSEA AND/OR VOMITING Last Admin: 07/18/18 09:33 Dose: 4 mg Ramipril (Altace -) 10 mg PO DAILY [facility] Last Admin: 07/19/18 11:23 Dose: Not Given Tamsulosin HCl (Flomax -) 0.4 mg PO DAILY@0830 [facility] Last Admin: 07/19/18 08:44 Dose: 0.4 mg Umeclidinium/Vilanterol (Anoro Ellipta 62.5-25 Mcg Inh) 1 puff IH DAILY [facility] Last Admin: 07/19/18 11:06 Dose: Not Given - Objective Vital Signs: Vital Signs Temperature 98.3 F 07/19/18 10:00 Pulse Rate 77 07/19/18 10:00 Respiratory Rate 18 07/19/18 10:00 Blood Pressure 136/71 07/19/18 10:00 O2 Sat by Pulse Oximetry (%) 97 07/19/18 08:00 Constitutional: Yes: No Distress, Calm, Obese Eyes: Yes: Conjunctiva Clear HENT: Yes: Atraumatic Cardiovascular: Yes: Regular Rate and Rhythm Respiratory: Yes: Regular, CTA Bilaterally Gastrointestinal: Yes: Normal Bowel Sounds, Soft, Abdomen, Obese, Tenderness ( LLQ and LUQ) Genitourinary: Yes: CVA Tenderness - Left Musculoskeletal: Yes: WNL Extremities: Yes: WNL Edema: No Neurological: Yes: Alert, Oriented Psychiatric: Yes: Alert, Oriented Labs: CBC, BMP 07/18/18 06:40 07/18/18 06:40 Microbiology 07/18/18 02:38 Urine - Urine Clean Catch Urine Culture - Final NO GROWTH OBTAINED Problem List - Problems (1) Cystitis Assessment/Plan: -Urology on board -pain management -UC negative Code(s): N30.90 - CYSTITIS, UNSPECIFIED WITHOUT HEMATURIA (2) Nephrolithiasis Assessment/Plan: -Urology on board -scheduled for L ureteroscopic laser lithotripsy -pain management -Abd/Pelvic CT scan shows 6mm left ureteral calculus Code(s): N20.0 - CALCULUS OF KIDNEY (3) Ovarian mass, right Assessment/Plan: -Pelvic US shows right adnexal/right ovarian region 3.4 x 2.8 x 2.8 cm mass, neoplasm cannot be excluded -H[employer] MAN consult -CEA, AFP, CA 125 ordered Code(s): N83.9 - NONINFLAMMATORY DISORD OF OVARY, FALLOP & BROAD LIGMT, UNSP Assessment/Plan see problem list dvt ppx
[2018-07-19] MEDS ORDERED: PROPOFOL 20 ML ONE ×2 (13:20)
[2018-07-19] MEDS ORDERED: LACTATED RINGERS SOLUTION 1,000 ML IV SCH ×2 (13:30→15:14)
[2018-07-19] MEDS ORDERED: IOHEXOL 300 MG/ML INFUS..BTL IV ONE ×2 (14:10)
[2018-07-19] MEDS ORDERED: KETOROLAC TROMETHAMINE 30 MG/1 ML VIAL ONE (14:35)
--- NOTE | 2018-07-19 14:58 | OP ---
Operative Note - Note: Operative Date: 07/19/18 Pre-Operative Diagnosis: left ureteral stone Operation: cystoscopy/left retrograde pyelogram/left ureteroscopic laser lithotripsy/left ureteral stone basketing/left ureteral stent placement Findings: 6mm mid ureteral stone with grade 3/5 hydroureteronephrosis Post-Operative Diagnosis: Same as Pre-op Surgeon: Dom Brizuela Anesthesia: General Specimens Removed: ureteral stone Drains & Tubes with Location: 09/18 left ureteral stent
[2018-07-19] MEDS ORDERED: MORPHINE SULFATE 2 MG/ML VIAL IVPUSH PRN (15:14)
[2018-07-19] MEDS ORDERED: ONDANSETRON 4 MG/2 ML VIAL IVPB PRN (15:14)
[2018-07-19] MEDS ORDERED: MONTELUKAST NA 10 MG TABLET PO SCH (22:00)
[2018-07-19] MEDS ORDERED: ATORVASTATIN CA 20 MG TABLET (FP) PO SCH (22:00)
[2018-07-20] MEDS: KETOROLAC TROMETHAMINE 30 MG/1 ML VIAL IVPUSH SCH ×2 (02:16→10:25)
[2018-07-20] MEDS: SODIUM CHLORIDE 1,000 ML IV SCH (05:59)
[2018-07-20] MEDS: INSULIN SLIDING SCALE (NOVOLOG) 1 VIAL SQ SCH ×2 (06:18→11:24)
[2018-07-20 06:57] LABS: HEMATOCRIT 40.5 % (32.4-45.2); HEMOGLOBIN 13.6 GM/dL (10.7-15.3); MCH 29.4 pg (25.7-33.7); MCHC 33.6 g/dl (32.0-36.0); MEAN CELL VOLUME 87.6 fl (80-96); MEAN PLT VOLUME 8.2 fl (7.5-11.1); PLATELET COUNT 265 K/MM3 (134-434); RBC 4.62 M/mm3 (3.60-5.2); RDW 13.3 % (11.6-15.6); WHITE BLOOD COUNT 7.5 K/mm3 (4.0-10.0)
[2018-07-20] MEDS ORDERED: LEVOTHYROXINE NA 150 MCG TABLET PO SCH (07:00)
[2018-07-20 07:39] LABS: ALBUMIN 3.4 g/dl (3.4-5.0); ALK PHOS 93 U/L (45-117); ANION GAP 6 MMOL/L (8-16); BILIRUBIN,TOTAL 0.6 mg/dL (0.2-1); BLOOD UREA NITROGEN 17 mg/dL (7-18); CALCIUM 8.9 mg/dL (8.5-10.1); CHLORIDE 108 mmol/L (98-107); CO2 26 mmol/L (21-32); CREATININE 0.9 mg/dL (0.55-1.3); GLUCOSE,RANDOM 217 mg/dL (74-106); POTASSIUM 4.1 mmol/L (3.5-5.1); SGOT/AST 16 U/L (15-37); SGPT/ALT 34 U/L (13-61); SODIUM 141 mmol/L (136-145); TOT PROT 6.7 g/dl (6.4-8.2)
[2018-07-20] MEDS ORDERED: DOCUSATE SODIUM 100 MG CAPSULE (FP) PO SCH (10:00)
[2018-07-20] MEDS ORDERED: ASPIRIN 81 MG CHEWABLE TABLETS PO SCH (10:00)
[2018-07-20] MEDS ORDERED: UMECLIDINIUM/VILANTEROL (ANORO) 62.5/25 MCG INHALER IH SCH (10:00)
[2018-07-20] MEDS ORDERED: RAMIPRIL 5 MG CAPSULE (FP) PO SCH (10:00)
[2018-07-20 10:18] VITALS: BP 149/85; PULSE 81; TEMP 98.7
[2018-07-20] MEDS ORDERED: PT OWN MED DRAWER 7, Y5N ONE (10:22)
[2018-07-20] MEDS: HEPARIN NA (PORCINE) 5,000 UNITS/ML 1ML VIAL SQ SCH (10:25)
--- NOTE | 2018-07-20 11:01 | PN ---
Progress Note, Physician Chief Complaint: L flank pain 6mm L ureteral calculus R ovarian mass History of Present Illness: Operative Date: 07/19/18 Pre-Operative Diagnosis: left ureteral stone Operation: cystoscopy/left retrograde pyelogram/left ureteroscopic laser lithotripsy/left ureteral stone basketing/left ureteral stent placement Findings: 6mm mid ureteral stone with grade 3/5 hydroureteronephrosis Post-Operative Diagnosis: Same as Pre-op Surgeon: Dom Brizuela by chance finding of R ovarian mass Has not seen WAITER in over 10 years WAITER consult called in 2 days ago, no one has seen her yet. Would require right adenexal mass biopsy, which can be done outpatient - Current Medication List Current Medications: Active Medications Aspirin (Asa -) 81 mg PO DAILY [facility] Last Admin: 07/20/18 10:25 Dose: 81 mg Atorvastatin Calcium (Lipitor -) 20 mg PO HS [facility] Last Admin: 07/19/18 22:00 Dose: 20 mg Docusate Sodium (Colace -) 100 mg PO DAILY [facility] Last Admin: 07/20/18 10:25 Dose: 100 mg Fentanyl (Sublimaze Injection -) 50 mcg IVPUSH [id number] PRN PRN Reason: PAIN-PACU ORDER X 4 DOSES ONLY Stop: 07/20/18 13:16 Heparin Sodium (Porcine) (Heparin -) 5,000 unit SQ BID [facility] Last Admin: 07/20/18 10:25 Dose: 5,000 unit Lactated Ringer's (Lactated Ringers Solution) 1,000 mls @ 125 mls/hr IV ASDIR [facility] Last Admin: 07/19/18 17:37 Dose: Not Given Sodium Chloride (Normal Saline -) 1,000 mls @ 75 mls/hr IV ASDIR [facility] Last Admin: 07/20/18 05:59 Dose: 75 mls/hr Insulin Aspart (Novolog Vial Sliding Scale -) 1 vial SQ ACHS [facility]; Protocol Last Admin: 07/20/18 06:18 Dose: 4 units Ketorolac Tromethamine (Toradol Injection -) 30 mg IVPUSH Q8H-IV [facility] Stop: 07/23/18 17:59 Last Admin: 07/20/18 10:25 Dose: 30 mg Levothyroxine Sodium (Synthroid -) 150 mcg PO DAILY@0700 [facility] Last Admin: 07/20/18 06:03 Dose: 150 mcg Montelukast Sodium (Singulair -) 10 mg PO HS [facility] Last Admin: 07/19/18 22:00 Dose: 10 mg Morphine Sulfate (Morphine Sulfate) 2 mg IVPUSH Q4H PRN PRN Reason: PAIN LEVEL 6-10 Ondansetron HCl (Zofran Injection) 4 mg IVPB Q6H PRN PRN Reason: NAUSEA AND/OR VOMITING Ramipril (Altace -) 10 mg PO DAILY [facility] Last Admin: 07/20/18 10:25 Dose: 10 mg Umeclidinium/Vilanterol (Anoro Ellipta 62.5-25 Mcg Inh) 1 puff IH DAILY [facility] Last Admin: 07/20/18 10:24 Dose: Not Given - Objective Vital Signs: Vital Signs Temperature 98.7 F 07/20/18 09:00 Pulse Rate 81 07/20/18 09:00 Respiratory Rate 20 07/20/18 09:00 Blood Pressure 149/85 07/20/18 09:00 O2 Sat by Pulse Oximetry (%) 96 07/19/18 15:50 Constitutional: Yes: Well Nourished, No Distress, Calm, Obese Cardiovascular: Yes: Regular Rate and Rhythm Respiratory: Yes: Regular Gastrointestinal: Yes: WNL Genitourinary: Yes: WNL Musculoskeletal: Yes: WNL Extremities: Yes: WNL Edema: No Peripheral Pulses WNL: Yes Neurological: Yes: Alert, Oriented Psychiatric: Yes: Alert, Oriented Labs: CBC, BMP 07/20/18 06:00 07/20/18 06:00 Assessment/Plan (1) Cystitis Assessment/Plan: -Urology on board -pain management -UC negative Code(s): N30.90 - CYSTITIS, UNSPECIFIED WITHOUT HEMATURIA (2) Nephrolithiasis Assessment/Plan: -Urology on board -s/p L ureteroscopic laser lithotripsy -pain management -Abd/Pelvic CT scan shows 6mm left ureteral calculus Code(s): N20.0 - CALCULUS OF KIDNEY (3) Ovarian mass, right Assessment/Plan: -Pelvic US shows right adnexal/right ovarian region 3.4 x 2.8 x 2.8 cm mass, neoplasm cannot be excluded -U/S guided biopsy ordered, can be done outpatient as well -WAITER consult outpatient -CEA, AFP, CA 125 ordered-pending Code(s): N83.9 - NONINFLAMMATORY DISORD OF OVARY, FALLOP & BROAD LIGMT, UNSP
--- NOTE | 2018-07-20 16:45 | PATH ---
Surgical Pathology Report Patient Name: KOFI RUBIO Med. Rec. #: [id number] /Age/Gender: 1960 (Age: 57) / F Account: [id number] Location: [address] [place] [address] Taken: 07/19/2018 Received: 07/20/2018 Reported: 07/20/2018 Physicians: Dom Nieto M.D. Specimen(s) Received LEFT URETERAL CALCULI Clinical History Calculus left kidney Final Diagnosis LEFT URETERAL STONE, EXTRACTION: CALCULI SUBMITTED FOR CHEMICAL ANALYSIS (gross only). Electronically Signed Jose Juan Mace M.D. Gross Description Received fresh labeled "left ureteral stone," is a 0.6 x 0.5 x 0.2 cm aggregate of multiple pineda, irregular to fragmented calculi. The specimen is sent for chemical analysis. DL/07/20/2018 saudi/07/20/2018
[2018-07-21 04:10] LABS: CARCINOEMBRYONIC ANTIGEN 2.6 ng/mL (0.0-4.7)
== END 2018-07-20 16:30 | disposition home or self-care (01) | DRG 446 ==
LOC: JER 02:06 → JERBED 03:32 → J6S 04:57 → OBSVTOIN 19:00
PROVIDERS: ADMIT Family Medicine; ATTEND Family Medicine
PROC: 0TC78ZZ Extirpation of Matter from Left Ureter, Via Natural or Artificial Opening Endoscopic (ICD-10-PCS; principal; 2018-07-19 13:30)
PROC: 0T778DZ Dilation of Left Ureter with Intraluminal Device, Via Natural or Artificial Opening Endoscopic (ICD-10-PCS; 2018-07-19 13:30)
PROC: BT1FZZZ Fluoroscopy of Left Kidney, Ureter and Bladder (ICD-10-PCS; 2018-07-19 13:30)
DX: N13.2 Hydronephrosis with renal and ureteral calculous obstruction (principal); N17.9 Acute kidney failure, unspecified; I10 Essential (primary) hypertension; R73.9 Hyperglycemia, unspecified; J44.9 Chronic obstructive pulmonary disease, unspecified; E03.9 Hypothyroidism, unspecified; R39.15 Urgency of urination; N83.8 Other noninflammatory disorders of ovary, fallopian tube and broad ligament; N30.90 Cystitis, unspecified without hematuria; R16.0 Hepatomegaly, not elsewhere classified; Z79.4 Long term (current) use of insulin; E66.8 Other obesity; Z68.41 Body mass index [BMI] 40.0-44.9, adult
CPT/HCPCS: 36415; 74176-TC; 76000-TC-FY; 76830-TC; 80048; 80053; 81003; 82105; 82378; 82962; 85025; 85027; 86304; 87086; 88300-TC; 93005; 93010; 94760; 99284-25; G0378; J1644; J7030

== ENCOUNTER 2018-08-16 07:47 | Day surgery (SDC) | payer OTHER ==
[2018-08-13 13:53] VITALS: BMI 41.8
[2018-08-16] MEDS ORDERED: PROPOFOL 20 ML ONE (10:20)
[2018-08-16] MEDS ORDERED: MIDAZOLAM HCL 2 MG/2 ML SINGLE DOSE VIAL ONE ×2 (10:20)
[2018-08-16] MEDS ORDERED: DEXAMETHASONE SOD PHOSPHATE 4 MG/1 ML VIAL ONE (10:21)
[2018-08-16] MEDS ORDERED: KETOROLAC TROMETHAMINE 30 MG/1 ML VIAL ONE (10:21)
--- NOTE | 2018-08-16 10:52 | OP ---
Operative Note - Note: Operative Date: 08/16/18 Pre-Operative Diagnosis: Right renal stone Operation: Right ESWL Findings: 5 mm lower pole renal stone Post-Operative Diagnosis: Same as Pre-op Surgeon: Dom Brizuela Anesthesia: Fractional Estimated Blood Loss (mls): 0 Operative Report Dictated: Yes
[2018-08-16 11:08] VITALS: PULSE 73; TEMP 97.3
[2018-08-16 11:56] VITALS: BP 110/59
--- NOTE | 2018-08-17 10:40 | OP ---
DATE OF OPERATION: 08/16/2018 PREOPERATIVE DIAGNOSIS: Right renal stone. POSTOPERATIVE DIAGNOSIS: Right renal stone. PROCEDURE: Right extracorporeal shock wave lithotripsy. ATTENDING: Kapil Murillo M.D. ANESTHESIA: Fractional. PROCEDURE: Patient was brought in the operating room and placed in the supine position on the operating room table. Ultrasonography and fluoroscopy were performed. A 5 mm right lower pole stone was identified. Anesthesia was then administered, as well as preoperative antibiotics. A 5 mm stone had been identified and was the focus of the lithotripsy; 2500 impulses 17 joules of power were administered to the stone. Excellent fragmentation was noted under real time ultrasonography and fluoroscopy. No complications were noted. DISPOSITION: The patient was to the recovery room. KAPIL MURILLO M.D. SE/[id number]
== END 2018-08-16 11:57 | disposition home or self-care (01) ==
LOC: JASU-SURG 07:47
PROVIDERS: ATTEND Urology
PROC: 0TF3XZZ Fragmentation in Right Kidney Pelvis, External Approach (ICD-10-PCS; principal; 2018-08-16 10:15)
DX: N20.0 Calculus of kidney (principal); I10 Essential (primary) hypertension; J44.9 Chronic obstructive pulmonary disease, unspecified; E11.9 Type 2 diabetes mellitus without complications; E66.9 Obesity, unspecified; Z79.84 Long term (current) use of oral hypoglycemic drugs
CPT/HCPCS: 82962

== ENCOUNTER 2018-11-01 08:53 | Emergency (ER) | payer OTHER ==
[2018-11-01 08:59] VITALS: TEMP 97.7; BMI 41.3
--- NOTE | 2018-11-01 09:34 | PDOC ---
History of Present Illness - General Chief Complaint: Rash Stated Complaint: shingles Time Seen by Provider: 11/01/18 09:25 History Source: Patient Exam Limitations: No Limitations - History of Present Illness Initial Comments: 11/01/18 09:29 [id number] with h/o chicken pox at age 31, kidney stone, HTN, DM, and hypothyroidism who p/w left flank rash radiating to her abdomen in dermatomal distribution, which occurred two days after onset of skin discomfort in the same area. She tried hydrogen peroxide and topical antibiotic to the area but no other medications. She cannot recall ever having been vaccinated against varicella/ shingles. She has been having cough and chills lately, but no fever and no additional symptoms. Past History - Past Medical History Allergies/Adverse Reactions: Allergies Allergy/AdvReac Type Severity Reaction Status Date / Time No Known Allergies Allergy Verified 11/01/18 09:02 Home Medications: Ambulatory Orders Aspirin 81 mg PO DAILY 07/16/18 Atorvastatin Ca [Lipitor] 20 mg PO HS 07/16/18 Docusate Sodium [Colace] 100 mg PO DAILY 07/16/18 Ibuprofen [Motrin -] 600 mg PO QID #28 tablet 07/16/18 Insulin Glargine,Hum.rec.anlog [Basaglar Kwikpen U-100] 60 unit SQ HS 07/16/18 Insulin Lispro [Admelog] 15 unit SQ TID 07/16/18 Levothyroxine Sodium [Synthroid] 150 mcg PO DAILY 07/16/18 Montelukast Na [Singulair -] 10 mg PO HS 07/16/18 Ramipril 10 mg PO DAILY 07/16/18 Semaglutide [Ozempic] 1 mg SQ WEEKLY 07/16/18 Sennosides [Senna -] 1 tab PO PRN 07/16/18 Umeclidinium Brm/Vilanterol Tr [Anoro Ellipta 62.5-25 Mcg INH] 1 each IH PRN Albuterol Sulfate Inhaler - [Ventolin Hfa Inhaler -] 1 - 2 inh PO Q4H PRN Amlodipine Besylate 10 mg PO DAILY 08/16/18 Metformin HCl [Glucophage] 500 mg PO BID 08/16/18 Valacyclovir HCl [Valtrex -] 1,000 mg PO TID #21 tablet 11/01/18 Anemia: No Asthma: No Cancer: No Cardiac Disorders: No CVA: No COPD: No CHF: No Dementia: No Diabetes: Yes GI Disorders: No Disorders: Yes (KIDNEY STONES) HTN: Yes Hypercholesterolemia: No Liver Disease: No Seizures: No Thyroid Disease: Yes (hypothyroidism) - Immunization History Td Vaccination: Yes TDAP Vaccination: Yes Immunization Up to Date: Yes - Suicide/Smoking/Psychosocial Hx Smoking Status: Yes Smoking History: Current every day smoker Have you smoked in the past 12 months: Yes Number of Cigarettes Smoked Daily: 10 Information on smoking cessation initiated: Yes 'Breaking Loose' booklet given: 08/13/18 Hx Alcohol Use: No Drug/Substance Use Hx: No Substance Use Type: None Hx Substance Use Treatment: No Review of Systems - Review of Systems Able to Perform ROS?: Yes Comments:: 11/01/18 09:35 GEN: no fever, chills, malaise, generalized weakness, or weight change HEENT: no ear pain, sore throat, vision change, or eye pain CV: no chest pain, palpitations, lightheadedness, syncope, or edema RESP: no cough, wheezing, or SOB GI: no abdominal pain, nausea, vomiting, diarrhea, constipation, or white/black/ bloody stool : no dysuria, hematuria, incontinence, retention, bleeding, or discharge MSK: no neck/back pain, muscle weakness/pain, or joint swelling/pain NEURO: no headache, seizure, vertigo, numbness, tingling, or focal weakness PSYCH: no substance use, no behavior change SKIN: rash, no jaundice ROS otherwise negative except as noted in HPI *Physical Exam - Vital Signs Last Vital Signs Temp Pulse Resp BP Pulse Ox 97.7 F 100 H 19 139/79 100 11/01/18 08:56 11/01/18 08:56 11/01/18 08:56 11/01/18 08:56 11/01/18 08:56 - Physical Exam Comments: 11/01/18 09:35 GENERAL: nontoxic-appearing adult female, A/Ox4, no distress, answers questions appropriately, obese HEENT: PERRLA, EOMI, moist mucous membranes NECK/BACK: no midline ttp, no spinal stepoff or deformity, no hematoma, full ROM , neck supple CARDIOVASCULAR: regular rate/rhythm, normal S1S2, no MGR, strong peripheral pulses, capillary refill <2 seconds, extremities wwp, no edema LUNGS/RESPIRATORY: no respiratory distress, CTAB GI/ABDOMEN: symmetric [id number], normoactive BS, soft, no ttp, no midline pulsatile masses : no CVA tenderness except skin tenderness to rash EXTREMITIES: no muscle atrophy, no acute deformity SKIN: left T11 distribution scattered vesicles on erythematous base, extending from posterior to anterior midline, several ruptured vesicles with crusting, rash is tender to light palpation, skin is otherwise warm and dry, no pallor, no jaundice, no rash, no bruising, no skin breakdown, no cuts, no lesions NEUROLOGICAL: GCS 15, CN II-XII grossly intact, 5/5 strength proximally and distally, no facial droop Medical Decision Making - Medical Decision Making 11/01/18 09:35 58YOF p/w vesicular rash on erythematous base with unilateral dermatomal distribution to flank/abdomen, no groin or mucous membrane involvement. Initial Vital Signs Temp Pulse Resp BP Pulse Ox 97.7 F 100 H 19 139/79 100 11/01/18 08:56 11/01/18 08:56 11/01/18 08:56 11/01/18 08:56 11/01/18 08:56 Exam: Results as noted in Physical Exam section. DDX IBNLT: shingles/zoster is most likely, main c/f would be for superinfection or disseminated zoster, but there are is no purulent drainage or expanding erythema/cellulitis and the rash does not cross dermatomal distributions. Less likely chemical burn, SJS/TEN, allergic reaction (e.g. contact dermatitis vs. anaphylaxis), DIC, TTP (HUS with AMS, fever, poss seizure), meningococcal meningitis, bullous pemphigoid, pemphigus vulgaris, eczema, psoriasis, burn, etc. W/U ordered: None TX ordered: Valacyclovir 1000 mg PO once, Tylenol 975mg 11/01/18 10:04 Exam is not concerning for emergency-level pathology at this time. No e/o HSV encephalitis or [employer] involvement. Patient is not reportedly immune compromised. No infants at home, no immune compromised individuals at home. 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 The Pt is appropriate for discharge with close outpatient follow up. They are comfortable with this plan and will follow up with their primary care provider in 1-3 days. They have insurance that will cover valacyclovir. E-Rx for Valacyclovir 1000 mg TID for 7 days sent to Pts pharmacy and they will take the whole course. They are counseled that their condition could spread to others. They are counseled to avoid contact with infants, elderly, ill, or immune compromised individuals. Specific return precautions are discussed and they will come back to the ER if necessary. *DC/Admit/Observation/Transfer Diagnosis at time of Disposition: Shingles Qualifiers: Herpes zoster complications: without complications Qualified Code(s): B02.9 - Zoster without complications - Discharge Dispostion Disposition: HOME Condition at time of disposition: Stable Decision to Admit order: No - Prescriptions Prescriptions: Valacyclovir HCl [Valtrex -] 1,000 mg PO TID #21 tablet - Referrals Referrals: Jose Juan Hall [Primary Care Provider] - - Patient Instructions Printed Discharge Instructions: DI for Shingles Additional Instructions: You were seen in the ER for a rash that we believe is shingles (herpes zoster). We gave you a dose of an antiviral, and sent a prescription to your pharmacy for the remaining antiviral doses in a course. After our assessment, we do not believe you are having a medical emergency at this time, and we believe you are safe to go home. Please pick up driver the prescription from your pharmacy and start the course at the correct time interval after the initial dose in the ER today. You must complete the entire course of antiviral pills as directed on the prescription, whether or not you feel better. Avoid any contact with babies and children, elderly people, ill people, women, or immune compromised people (including people on chronic steroid medications, insulin, HIV medications, rheumatoid arthritis medications, etc). Please follow up with your primary care provider in 1-3 days. Call their clinic, tell them you were seen in the ER, and tell them you need a follow-up. If you have any new or worsening symptoms, especially increasing pain and redness to the area or other signs of infection like fever, please come back to the ER at any time (24 hours a day). If you are having severe or life threatening symptoms, or symptoms that make it unsafe to drive or have someone drive you, please call 911. Take your valacyclovir (Valtrex) that we are sending to your pharmacy, exactly as prescribed. Take Tylenol 650 mg and ibupforen 600 mg at home for pain: first take ibuprofen when you get home, then three hours later take the Tylenol, then three hours later take ibuprofen again, then three hours later take the Tylenol again. Alternate these medications every 3 hours as you need them for pain. - Post Discharge Activity Forms/Work/School Notes: Back to Work
[2018-11-01] MEDS ORDERED: valACYclovir HCL 1000 MG TABLET PO ONE (09:50)
[2018-11-01] MEDS ORDERED: ACETAMINOPHEN 500 MG TABLET (FP) PO ONE (09:51)
[2018-11-01] MEDS ORDERED: valACYclovir HCL 500 MG TABLET (FP) ONE (09:54)
[2018-11-01] MEDS ORDERED: ACETAMINOPHEN 325 MG TABLET (FP) ONE (09:54)
--- NOTE | 2018-11-01 10:12 | PDOC ---
Attending Attestation - Resident Resident Name: Mary Carmen Phillips - ED Attending Attestation I have performed the following: I have examined & evaluated the patient, The case was reviewed & discussed with the resident, I agree w/resident's findings & plan, Exceptions are as noted - HPI HPI: 11/01/18 10:08 58 F with h/o HTN, DM, and hypothyroidism presenting to ED with 4 days of rash to L flank and abdomen. Pt states that she first felt pain at the site, describing a tingling sensation. Then she began to notice an itchy rash appear. Denies F/C. Denies rash anywhere else on her body. No prior episodes of shingles. Pt believes she had chicken pox before. No other complaints. - Physicial Exam PE: 11/01/18 10:09 "GENERAL: Awake, alert, and fully oriented, in no acute distress. HEAD: No signs of trauma EYES: PERRLA, EOMI, sclera anicteric, conjunctiva clear ENT: Auricles normal inspection, hearing grossly normal, nares patent, oropharynx clear without exudates. Moist mucosa NECK: Nontender, no stepoffs, Normal ROM, supple, no lymphadenopathy, JVD, or masses LUNGS: Breath sounds equal, clear to auscultation bilaterally. No wheezes, and no crackles HEART: Regular rate and rhythm, normal S1 and S2, no murmurs, rubs or gallops ABDOMEN: Soft, nontender, normoactive bowel sounds. No guarding, no rebound. No masses EXTREMITIES: Normal range of motion, no edema. No clubbing or cyanosis. No cords, erythema, or tenderness NEUROLOGICAL: Cranial nerves II through XII intact. 5/5 strength and sensation in all extremities, Normal speech, normal gait, normal cerebellar function SKIN: + erythematous, vesicular rash to L flank in T11 dermatome, without crossing midline, no other dermatomal involvement, no induration/fluctuance, no purulent drainage - Medical Decision Making 11/01/18 10:10 58 F with shingles rash in left T11 dermatome. No other dermatomes involved, no evidence of disseminated shingles or systemic illness. Pt with no immune compromise. - Valacyclovir - Pain control Repeat HR 90s Pt is well appearing, with normal vitals. Clinically stable for DC at this time. I discussed the physical exam findings, ancillary test results and final diagnoses with the patient. I answered all of the patient's questions. The patient was satisfied with the care received and felt comfortable with the discharge plan and treatment plan. The patient agrees to follow up with the primary care physician within 24-72 hours.
[2018-11-01 10:18] VITALS: BP 132/74; PULSE 90
== END 2018-11-01 10:18 | disposition home or self-care (01) ==
LOC: JER 08:53
DX: B02.9 Zoster without complications (principal); I10 Essential (primary) hypertension; E03.9 Hypothyroidism, unspecified; E11.9 Type 2 diabetes mellitus without complications; Z79.4 Long term (current) use of insulin; F17.210 Nicotine dependence, cigarettes, uncomplicated; Z87.440 Personal history of urinary (tract) infections
CPT/HCPCS: 99281-25

== ENCOUNTER 2018-11-05 02:01 | Emergency (ER) | payer OTHER ==
[2018-11-05] MEDS ORDERED: ACETAMINOPHEN 1000 MG/100 ML VIAL (NON FORMULARY) IVPB ONE (03:23)
[2018-11-05] MEDS ORDERED: SODIUM CHLORIDE 1,000 ML IV STA (03:23)
--- NOTE | 2018-11-05 03:41 | PDOC ---
History of Present Illness - General Stated Complaint: PAIN History Source: Patient Exam Limitations: No Limitations - History of Present Illness Initial Comments: 11/05/18 03:27 Alyson Diaz is a 58 year old female with a PMHx of type 2 diabetes mellitus, hypothyroidism, hypertension, high cholesterol, COPD, and kidney stones, who presents to the ED with the chief complaint of left lower back pain. She was previously seen in the [facility] ED on Thursday (11/01/18) for shingles and was discharged on a medication regimen of valacyclovir, tylenol, and ibuprofen. Her shingles rash presented in the left lower back, wrapping circumferentially around to her left lower abdomen, without crossing the midline. She says that on Thursday morning (11/03/18) her left lower back pain acutely worsened and did "not feel like her shingles pain," expressing that, "the pain feels like my kidney stone pains." She endorses an increase in pain intensity, and currently describes it as a 10/10 throbbing, burning pain, regionally limited to her left lower back, overlying closely to her currently present shingles rash. Tylenol and ibuprofen has offered little to no relief, and says that the "pain is getting worse," and that just sitting down hurts her lower back. She notes that she has felt warm, but has not taken her temperature at home; she endorses nausea and chills, and a decrease in appetite since the pain started. She denies any vomiting, diarrhea, dysuria, urinary urgency, or hematuria; she endorses urinary frequency. She denies any chest pain, shortness of breath, headache, vision changes, and tinnitus. 11/05/18 03:43 Past History - Past Medical History Allergies/Adverse Reactions: Allergies Allergy/AdvReac Type Severity Reaction Status Date / Time No Known Allergies Allergy Verified 11/05/18 03:49 Home Medications: Ambulatory Orders Aspirin 81 mg PO DAILY 07/16/18 Atorvastatin Ca [Lipitor] 20 mg PO HS 07/16/18 Docusate Sodium [Colace] 100 mg PO DAILY 07/16/18 Ibuprofen [Motrin -] 600 mg PO QID #28 tablet 07/16/18 Insulin Glargine,Hum.rec.anlog [Basaglgertrude Sunpen U-100] 60 unit SQ HS 07/16/18 Insulin Lispro [Admelog] 15 unit SQ TID 07/16/18 Levothyroxine Sodium [Synthroid] 150 mcg PO DAILY 07/16/18 Montelukast Na [Singulair -] 10 mg PO HS 07/16/18 Ramipril 10 mg PO DAILY 07/16/18 Semaglutide [Ozempic] 1 mg SQ WEEKLY 07/16/18 Sennosides [Senna -] 1 tab PO PRN 07/16/18 Umeclidinium Brm/Vilanterol Tr [Anoro Ellipta 62.5-25 Mcg INH] 1 each IH PRN Albuterol Sulfate Inhaler - [Ventolin Hfa Inhaler -] 1 - 2 inh PO Q4H PRN Amlodipine Besylate 10 mg PO DAILY 08/16/18 Metformin HCl [Glucophage] 500 mg PO BID 08/16/18 Valacyclovir HCl [Valtrex -] 1,000 mg PO TID #21 tablet 11/01/18 Cephalexin Monohydrate [Keflex -] 500 mg PO BID #20 capsule 11/05/18 Anemia: No Asthma: No Cancer: No Cardiac Disorders: No CVA: No COPD: No CHF: No Dementia: No Diabetes: Yes GI Disorders: No Disorders: Yes (KIDNEY STONES) HTN: Yes Hypercholesterolemia: No Liver Disease: No Seizures: No Thyroid Disease: Yes (hypothyroidism) - Immunization History Td Vaccination: Yes TDAP Vaccination: Yes Immunization Up to Date: Yes - Suicide/Smoking/Psychosocial Hx Smoking Status: Yes Smoking History: Current every day smoker Have you smoked in the past 12 months: Yes Number of Cigarettes Smoked Daily: 10 'Breaking Loose' booklet given: 08/13/18 Hx Alcohol Use: No Drug/Substance Use Hx: No Substance Use Type: None Hx Substance Use Treatment: No ED Treatment Course - LABORATORY CBC & Chemistry Diagram: 11/05/18 04:17 11/05/18 04:17 *DC/Admit/Observation/Transfer Diagnosis at time of Disposition: UTI (urinary tract infection) - Discharge Dispostion Disposition: HOME Decision to Admit order: No - Prescriptions Prescriptions: Cephalexin Monohydrate [Keflex -] 500 mg PO BID #20 capsule - Referrals Referrals: Jose Juan Hall [Primary Care Provider] - - Patient Instructions Printed Discharge Instructions: DI for Urinary Tract Infection (UTI) Additional Instructions: You were seen for the evaluation of your flank pain. Your urine shows UTI. CT shows no obstructing stone. I am sending antibiotics to your pharmacy. Please take them as prescribed. Please follow up with your urologist in 3 days for follow up care and management. Please return if you have worsening symptoms or new concerning symptoms. thank you. - Post Discharge Activity Forms/Work/School Notes: Back to Work
[2018-11-05 03:49] VITALS: TEMP 98.2; BMI 41.3
[2018-11-05] MEDS ORDERED: ACETAMINOPHEN INJECTION 100 ML IVPB ONE (04:13)
--- NOTE | 2018-11-05 04:13 | PDOC ---
Attending Attestation - Resident Resident Name: Gene Cardoza - ED Attending Attestation I have performed the following: I have examined & evaluated the patient, The case was reviewed & discussed with the resident, I agree w/resident's findings & plan, Exceptions are as noted - HPI HPI: 11/05/18 07:50 58F pmh DM, HTN, HLD, COPD, hypothyroid, frequent nephrolithiasis here with sharp, colicky L sided flank px. Was seen 4 days ago for L sided flank pain and diagnosed with shingles which was tx. Pt states that the pain is different today and more reminiscent of past kidney stones. - Physicial Exam PE: 11/05/18 07:52 - Medical Decision Making 11/05/18 07:52 Px likely 2/2 shingles, consider nephrolithiasis, consider ascending gu infection f/u labs, ua, ct stone uti, ct neg for stone dc with abx to pharmacy of choice
[2018-11-05 04:14] LABS: EPI CELLS 2.3 /HPF (0-5/HPF); HYALINE CASTS 1 /lpf (0-8); URINE APPEARANCE CLEAR; URINE BACTERIA 82.1 /hpf (NEGATIVE); URINE BILIRUBIN NEGATIVE (NEGATIVE); URINE COLOR YELLOW; URINE GLUCOSE (UA) 3+ (NEGATIVE); URINE KETONE NEGATIVE (NEGATIVE); URINE LEUK ESTERASE 1+ (NEGATIVE); URINE NITRITE NEGATIVE (NEGATIVE); URINE PROTEIN NEGATIVE (NEGATIVE); URINE RBC 0 /hpf (0-4); URINE UROBILINOGEN 0.2 mg/dL (0.2-1.0); URINE WBC 25 /hpf (0-5)
[2018-11-05 04:33] LABS: BASO % 1.4 % (0-2.0); EOS % 1.4 % (0-4.5); HEMATOCRIT 42.2 % (32.4-45.2); HEMOGLOBIN 14.5 GM/dL (10.7-15.3); LYMPH % 39.6 % (8-40); MCH 29.7 pg (25.7-33.7); MCHC 34.3 g/dl (32.0-36.0); MEAN CELL VOLUME 86.8 fl (80-96); MONO % 6.6 % (3.8-10.2); PLATELET COUNT 301 K/MM3 (134-434); RBC 4.86 M/mm3 (3.60-5.2); RDW 13.6 % (11.6-15.6); WHITE BLOOD COUNT 9.8 K/mm3 (4.0-10.0)
[2018-11-05 04:54] LABS: BILIRUBIN,TOTAL 0.3 mg/dL (0.2-1); BLOOD UREA NITROGEN 18.7 mg/dL (7-18); CALCIUM 9.9 mg/dL (8.5-10.1); CREATININE 0.8 mg/dL (0.55-1.3); POTASSIUM 4.2 mmol/L (3.5-5.1); TOT PROT 7.4 g/dl (6.4-8.2)
[2018-11-05] MEDS ORDERED: morphine CARPU-JECT 4 MG/1 ML DISP.SYRIN IVPUSH ONE (05:13)
[2018-11-05] MEDS ORDERED: morphine SULFATE 4 MG/ML VIAL ONE (05:20)
[2018-11-05 06:22] VITALS: BP 145/77; PULSE 80
== END 2018-11-05 07:48 | disposition home or self-care (01) ==
LOC: JER 02:01
PROC: 3E033NZ Introduction of Analgesics, Hypnotics, Sedatives into Peripheral Vein, Percutaneous Approach (ICD-10-PCS; principal; 2018-11-05)
PROC: 3E0337Z Introduction of Electrolytic and Water Balance Substance into Peripheral Vein, Percutaneous Approach (ICD-10-PCS; 2018-11-05)
DX: E03.9 Hypothyroidism, unspecified (principal); E11.9 Type 2 diabetes mellitus without complications; I10 Essential (primary) hypertension; E78.00 Pure hypercholesterolemia, unspecified; J44.9 Chronic obstructive pulmonary disease, unspecified; Z87.442 Personal history of urinary calculi; N39.0 Urinary tract infection, site not specified; F17.210 Nicotine dependence, cigarettes, uncomplicated
CPT/HCPCS: 36415; 74176-TC; 80053; 81003; 85025; 87086; 99284-25; J0131; J7030

== ENCOUNTER 2019-03-08 08:38 | Emergency (ER) | payer OTHER ==
[2019-03-08 08:51] VITALS: BP 132/77; PULSE 100; TEMP 98; BMI 42.5
[2019-03-08] MEDS ORDERED: KETOROLAC TROMETHAMINE 30 MG/1 ML VIAL IM ONE (09:47)
--- NOTE | 2019-03-08 09:48 | PDOC ---
History of Present Illness - General Chief Complaint: Pain Stated Complaint: RT KNEE PAIN Time Seen by Provider: 03/08/19 08:58 History Source: Patient Exam Limitations: No Limitations Past History - Travel Traveled outside of the country in the last 30 days: No Close contact w/someone who was outside of country & ill: No - Past Medical History Allergies/Adverse Reactions: Allergies Allergy/AdvReac Type Severity Reaction Status Date / Time No Known Allergies Allergy Verified 03/08/19 08:47 Home Medications: Ambulatory Orders Aspirin 81 mg PO DAILY 07/16/18 Atorvastatin Ca [Lipitor] 20 mg PO HS 07/16/18 Insulin Glargine,Hum.rec.anlog [Basaglar Kwikpen U-100] 60 unit SQ HS 07/16/18 Insulin Lispro [Admelog] 15 unit SQ TID 07/16/18 Levothyroxine Sodium [Synthroid] 150 mcg PO DAILY 07/16/18 Montelukast Na [Singulair -] 10 mg PO HS 07/16/18 Ramipril 10 mg PO DAILY 07/16/18 Semaglutide [Ozempic] 1 mg SQ WEEKLY 07/16/18 Umeclidinium Brm/Vilanterol Tr [Anoro Ellipta 62.5-25 Mcg INH] 1 each IH PRN Albuterol Sulfate Inhaler - [Ventolin Hfa Inhaler -] 1 - 2 inh PO Q4H PRN Amlodipine Besylate 10 mg PO DAILY 08/16/18 Metformin HCl [Glucophage] 1,000 mg PO DAILY 08/16/18 Gabapentin 300 mg PO BID 02/22/19 Anemia: Yes Asthma: Yes Cancer: No Cardiac Disorders: Yes (chest pains/stress) CVA: No COPD: Yes CHF: No Dementia: No Diabetes: Yes GI Disorders: No Disorders: Yes (KIDNEY STONES) HTN: Yes Hypercholesterolemia: Yes Liver Disease: No Seizures: No Thyroid Disease: Yes (hypothyroidism) - Surgical History Abdominal Surgery: No Appendectomy: No Cardiac Surgery: No Cholecystectomy: No Lung Surgery: No Neurologic Surgery: No Orthopedic Surgery: No - Immunization History Td Vaccination: Yes TDAP Vaccination: Yes Immunization Up to Date: Yes - Psycho Social/Smoking Cessation Hx Smoking Status: Yes Smoking History: Never smoked Have you smoked in the past 12 months: No Number of Cigarettes Smoked Daily: 10 If you are a former smoker, when did you quit?: 6 mths Information on smoking cessation initiated: No 'Breaking Loose' booklet given: 08/13/18 Hx Alcohol Use: No Drug/Substance Use Hx: No Substance Use Type: None Hx Substance Use Treatment: No Review of Systems - Review of Systems Able to Perform ROS?: Yes Comments:: 03/08/19 10:53 CONSTITUTIONAL: Absent: fever, chills, diaphoresis, generalized weakness, malaise, loss of appetite HEENT: Absent: rhinorrhea, nasal congestion, throat pain, throat swelling, difficulty swallowing, mouth swelling, ear pain, eye pain, visual Changes MUSCULOSKELETAL: Present: Right knee pain. Absent: arthralgia, joint swelling SKIN: Absent: rash, itching, pallor NEUROLOGIC: Absent: headache, focal weakness or paresthesias, dizziness, unsteady gait, seizure, mental status changes, bladder or bowel incontinence PSYCHIATRIC: Absent: anxiety, depression, suicidal or homicidal ideation, hallucinations. Is the patient limited Occitan proficient: No *Physical Exam - Vital Signs Last Vital Signs Temp Pulse Resp BP Pulse Ox 98.0 F 100 H 19 132/77 98 03/08/19 08:44 03/08/19 08:44 03/08/19 08:44 03/08/19 08:44 03/08/19 08:44 - Physical Exam 03/08/19 10:54 GENERAL: The patient is awake, alert, and fully oriented, in no acute distress. HEAD: Normal with no signs of trauma. EYES: Pupils equal, round and reactive to light, extraocular movements intact, sclera anicteric, conjunctiva clear. EXTREMITIES: Right knee is tender to palpation medially over the tibia. Positive Humza's test with internal rotation of the right foot. Negative anterior drawer, posterior draw, varus and valgus stressing. Calves are both soft and nontender bilaterally. Strength is 5 out of 5 in the legs bilaterally. 2+ distal pulses. Normal range of motion, no edema NEUROLOGICAL: Normal speech, normal gait. PSYCH: Normal mood, normal affect. SKIN: Warm, Dry, normal turgor, no rashes or lesions noted. Medical Decision Making - Medical Decision Making 03/08/19 10:55 Patient is a 58-year-old female who presents to the ER with right knee pain for 3 weeks. She states that she fell 3 weeks ago but landed on the the left knee for which she has no pain. She now complains of pain in her right knee. States it hurts more when she goes up the stairs. Denies fevers, chills, calf pain, numbness and tingling and weakness to the affected extremity. A/P: Right knee pain On exam positive Humza's test, suspicious for meniscal injury. Calf is soft and nontender. X-ray shows no fractures. Will refer to orthopedics for further management. Gaston wrap applied, steroids sent to patient pharmacy Discharge home I discussed the physical exam findings, ancillary test results and final diagnoses with the patient. I answered all of the patient's questions. The patient was satisfied with the care received and felt comfortable with the discharge plan and treatment plan. The Patient agrees to follow up with the primary care physician/specialist within 24-72 hours. Return precautions were given. Discharge - Discharge Information Problems reviewed: Yes Clinical Impression/Diagnosis: Right knee pain Qualifiers: Chronicity: acute Qualified Code(s): M25.561 - Pain in right knee Condition: Stable Disposition: HOME - Admission No - Follow up/Referral Referrals: Jose Juan Hall [Primary Care Provider] - Dez Benson MD [Staff Physician] - - Patient Discharge Instructions Patient Printed Discharge Instructions: DI for Knee Pain Additional Instructions: You were evaluated for your knee pain today. Your x-ray did not show any broken bones. You likely injured a ligament or your meniscus. Please apply ice to the area and keep it elevated. You may wear the Gaston wrap for comfort. Take the steroids as directed. Please follow-up with orthopedics as soon as possible. Return to the ER for any new or worsening symptoms. - Post Discharge Activity Work/Back to School Note: Back to Work
[2019-03-08] MEDS ORDERED: KETOROLAC TROMETHAMINE 30 MG/1 ML VIAL ONE (09:56)
== END 2019-03-08 11:09 | disposition home or self-care (01) ==
LOC: JERFT 08:38 → JER 08:38 → JERFT 11:09
PROC: 3E0233Z Introduction of Anti-inflammatory into Muscle, Percutaneous Approach (ICD-10-PCS; principal; 2019-03-08)
DX: M25.561 Pain in right knee (principal); Z87.891 Personal history of nicotine dependence; D64.9 Anemia, unspecified; I51.9 Heart disease, unspecified; N20.0 Calculus of kidney; E03.9 Hypothyroidism, unspecified; E78.00 Pure hypercholesterolemia, unspecified; I10 Essential (primary) hypertension
CPT/HCPCS: 73562-TC-RT-FY; 96372; 99282-25

== ENCOUNTER 2019-03-14 06:47 | Day surgery (SDC) | payer OTHER ==
[2019-02-22 11:49] VITALS: BMI 42.8
[2019-03-14] MEDS ORDERED: INSULIN (NOVOLOG) ASPART 100 UNITS/ML 10ML VIAL ONE (08:56)
[2019-03-14] MEDS ORDERED: INSULIN (NOVOLOG) ASPART 100 UNITS/ML 10ML VIAL SQ ONE (08:59)
[2019-03-14] MEDS ORDERED: MIDAZOLAM HCL 2 MG/2 ML SINGLE DOSE VIAL ONE (09:57)
[2019-03-14] MEDS ORDERED: KETOROLAC TROMETHAMINE 30 MG/1 ML VIAL ONE (09:57)
[2019-03-14 10:55] VITALS: BP 108/70; PULSE 64; TEMP 97.8
--- NOTE | 2019-03-14 10:55 | OP ---
Operative Note - Note: Operative Date: 03/14/19 Pre-Operative Diagnosis: Left renal stone Operation: Left ESWL Findings: 5 mm mid pole Left renal stone Surgeon: Dom Brizuela Anesthesia: Fractional Estimated Blood Loss (mls): 0 Drains, Volume Out (mls): 0 Operative Report Dictated: Yes
--- NOTE | 2019-03-14 18:27 | OP ---
DATE OF OPERATION: 03/14/2019 PREOPERATIVE DIAGNOSIS: Left renal stone. POSTOPERATIVE DIAGNOSIS: Left renal stone. PROCEDURE: Left extracorporeal shock-wave lithotripsy. ATTENDING: Kapil Murillo MD ANESTHESIA: General. DESCRIPTION OF PROCEDURE: Patient was brought in the operating room, placed in a supine position on the operating room table. Ultrasonography and fluoroscopy were performed. A 5-mm left mid pole stone was identified. At this point, anesthesia and preoperative antibiotics were administered. Shock-wave lithotripsy was then started; 2500 impulses at 17 joules of power were administered to the stone. Excellent fragmentation of the stone was noted under real time ultrasonography and fluoroscopy. There were no complications noted. The patient tolerated the procedure very well. KAPIL MURILLO M.D. /[id number]
== END 2019-03-14 11:42 | disposition home or self-care (01) ==
LOC: JASU-SURG 06:47
PROVIDERS: ATTEND Urology
PROC: 0TF4XZZ Fragmentation in Left Kidney Pelvis, External Approach (ICD-10-PCS; principal; 2019-03-14 09:30)
DX: N20.0 Calculus of kidney (principal)
CPT/HCPCS: 82962

== ENCOUNTER 2020-03-26 15:44 | Emergency (ER) | payer OTHER ==
[2020-03-26 16:06] VITALS: TEMP 97.8; BMI 44.4
[2020-03-26] MEDS ORDERED: METHOCARBAMOL 500 MG TABLET PO ONE (16:31)
[2020-03-26] MEDS ORDERED: METHOCARBAMOL 500 MG TABLET ONE (17:51)
[2020-03-26 19:04] LABS: BASO % 0.6 % (0-2.0); EOS % 1.3 % (0-4.5); HEMATOCRIT 47.4 % (32.4-45.2); HEMOGLOBIN 15.8 GM/dL (10.7-15.3); MCH 30.1 pg (25.7-33.7); MCHC 33.3 g/dl (32.0-36.0); MEAN CELL VOLUME 90.3 fl (80-96); MEAN PLT VOLUME 9.1 fl (7.5-11.1); NEUT % 60.1 % (42.8-82.8); PLATELET COUNT 309 K/MM3 (134-434); RBC 5.25 M/mm3 (3.60-5.2); RDW 13.9 % (11.6-15.6); WHITE BLOOD COUNT 11.7 K/mm3 (4.0-10.0)
[2020-03-26 20:20] LABS: ALBUMIN 3.8 g/dl (3.4-5.0); BILIRUBIN,TOTAL 0.2 mg/dL (0.2-1); BLOOD UREA NITROGEN 16.3 mg/dL (7-18); CALCIUM 9.1 mg/dL (8.5-10.1); TOT PROT 6.8 g/dl (6.4-8.2)
[2020-03-26] MEDS ORDERED: diazePAM 5 MG TABLET PO ONE (21:10)
[2020-03-26] MEDS ORDERED: DEXAMETHASONE SOD PHOSPHATE 10 MG/1 ML VIAL IVPUSH ONE (21:10)
[2020-03-26] MEDS ORDERED: diazePAM 5 MG TABLET ONE (22:18)
[2020-04-07 04:15] VITALS: BP 108/67; PULSE 91
== END 2020-03-26 23:46 | disposition home or self-care (01) ==
LOC: JER 15:44
PROC: 3E033GC Introduction of Other Therapeutic Substance into Peripheral Vein, Percutaneous Approach (ICD-10-PCS; principal; 2020-03-26)
DX: M43.6 Torticollis (principal)
CPT/HCPCS: 36415; 70491-TC; 80053; 85025; 87070; 87077; 87880; 99285-25; J1100; Q9967

== ENCOUNTER 2020-06-18 05:34 | Day surgery (SDC) | payer OTHER ==
[2020-06-15 08:49] VITALS: BMI 44.2
[2020-06-18] MEDS ORDERED: MIDAZOLAM HCL 2 MG/2 ML SINGLE DOSE VIAL ONE (11:12)
[2020-06-18] MEDS ORDERED: PROPOFOL 20 ML ONE (11:12)
[2020-06-18 12:05] VITALS: BP 135/83; PULSE 94; TEMP 97.7
== END 2020-06-18 16:30 | disposition home or self-care (01) ==
LOC: JASU-SURG 05:34
PROVIDERS: ATTEND Urology
DX: Z53.8 Procedure and treatment not carried out for other reasons (principal)
CPT/HCPCS: 82962

== ENCOUNTER 2020-07-02 04:14 | Day surgery (SDC) | payer OTHER ==
[2020-06-27 14:17] VITALS: BMI 44.2
[2020-07-02 07:07] VITALS: TEMP 97.6
[2020-07-02] MEDS ORDERED: MIDAZOLAM HCL 2 MG/2 ML SINGLE DOSE VIAL ONE (09:19)
[2020-07-02] MEDS ORDERED: DEXAMETHASONE SOD PHOSPHATE 4 MG/1 ML VIAL ONE (09:26)
[2020-07-02 10:50] VITALS: BP 120/70; PULSE 84
== END 2020-07-02 10:30 | disposition home or self-care (01) ==
LOC: JASU-SURG 04:14
PROVIDERS: ATTEND Urology
PROC: 0TF4XZZ Fragmentation in Left Kidney Pelvis, External Approach (ICD-10-PCS; principal; 2020-07-02 09:00)
DX: N20.0 Calculus of kidney (principal); E11.9 Type 2 diabetes mellitus without complications; I10 Essential (primary) hypertension
CPT/HCPCS: 82962

== ENCOUNTER 2021-03-08 17:18 | Emergency (ER) | payer OTHER ==
[2021-03-08 17:29] VITALS: BP 126/71; PULSE 93; TEMP 983; BMI 42.5
== END 2021-03-08 18:47 | disposition home or self-care (01) ==
LOC: JERFT 17:18
DX: M79.5 Residual foreign body in soft tissue (principal)
CPT/HCPCS: 74190-TC-FY; 99284-25

== ENCOUNTER 2023-01-19 18:16 | Emergency (ER) | payer OTHER ==
[2023-01-19 18:33] VITALS: BMI 44.2
[2023-01-19] MEDS ORDERED: METOCLOPRAMIDE HCL INJECTION 10 MG/2 ML VIAL IVPUSH ONE (19:32)
[2023-01-19 20:13] LABS: BASO % 1.4 % (0-2.0); EOS % 2.3 % (0-4.5); HEMATOCRIT 50.8 % (32.4-45.2); HEMOGLOBIN 17.2 GM/dL (10.7-15.3); LYMPH % 39.2 % (8-40); MCH 29.3 pg (25.7-33.7); MCHC 33.9 g/dl (32.0-36.0); MEAN CELL VOLUME 86.3 fl (80-96); MONO % 7.1 % (3.8-10.2); PLATELET COUNT 293 10^3/uL (134-434); RBC 5.88 M/mm3 (3.60-5.2); RDW 14.5 % (11.6-15.6); WHITE BLOOD COUNT 8.6 K/mm3 (4.0-10.0)
[2023-01-19 20:43] LABS: POTASSIUM 4.2 mmol/L (3.5-5.1)
[2023-01-19 20:45] LABS: BLOOD UREA NITROGEN 19.8 mg/dL (7-18); CALCIUM 8.9 mg/dL (8.5-10.1)
[2023-01-19 20:46] LABS: ALBUMIN 3.8 g/dl (3.4-5.0)
[2023-01-19 20:48] LABS: CREATININE 1.3 mg/dL (0.55-1.3)
[2023-01-19 20:50] LABS: BILIRUBIN,TOTAL 0.6 mg/dL (0.2-1); TOT PROT 7.1 g/dl (6.4-8.2)
[2023-01-19] MEDS ORDERED: KETOROLAC TROMETHAMINE 30 MG/1 ML VIAL IVPUSH ONE (21:19)
[2023-01-19] MEDS ORDERED: KETOROLAC TROMETHAMINE 30 MG/1 ML VIAL ONE (21:26)
[2023-01-19 21:43] LABS: EPI CELLS >36 /uL (0-25.1); HYALINE CASTS 2 /uL (0-3.1); PH,URINE 5.5 (5.0-8.0); URINE APPEARANCE CLEAR; URINE BACTERIA 194 /uL (0-1359); URINE BILIRUBIN 1+ (NEGATIVE); URINE COLOR DK YELLOW; URINE GLUCOSE (UA) TRACE (NEGATIVE); URINE KETONE TRACE (NEGATIVE); URINE LEUK ESTERASE TRACE (NEGATIVE); URINE NITRITE NEGATIVE (NEGATIVE); URINE PROTEIN 1+ (NEGATIVE); URINE RBC 12 /uL (0-23.9); URINE WBC 56 /uL (0-25.8)
[2023-01-19 22:56] VITALS: BP 128/76; PULSE 78; RESP 18; TEMP 98.1
== END 2023-01-19 23:00 | disposition home or self-care (01) ==
LOC: JER 18:16
PROC: 3E0333Z Introduction of Anti-inflammatory into Peripheral Vein, Percutaneous Approach (ICD-10-PCS; principal; 2023-01-19)
PROC: 3E033GC Introduction of Other Therapeutic Substance into Peripheral Vein, Percutaneous Approach (ICD-10-PCS; 2023-01-19)
DX: R10.9 Unspecified abdominal pain (principal); M54.50 Low back pain, unspecified; M41.9 Scoliosis, unspecified; M51.36 Other intervertebral disc degeneration, lumbar region
CPT/HCPCS: 36415; 72100-TC-FY; 74176-TC; 80053; 81003; 85025; 87077; 87086; 99285-25